=== PATIENT | male | born 1940 | race Caucasian/White ===

== ENCOUNTER → 2017-04-23 | Outpatient (CLI) | payer MEDICARE ==
[~2017-04-23] MED LIST: ALLO300 PO; ALLO300T2 PO; AMOX875T2 PO; COZA50TA PO; LEVO88TA2 PO; OMEP40CA2 PO; PRED10 PO; PRIL20CA PO; TIMO0.255 EACH EYE; TIMO0.255 OU; VALT500T PO
== END ==
LOC: CLAB 09:34
PROVIDERS: ATTEND Specialist
DX: R79.89 Other specified abnormal findings of blood chemistry (principal); B18.2 Chronic viral hepatitis C; Z79.899 Other long term (current) drug therapy
CPT/HCPCS: 36415; 82140

== ENCOUNTER 2017-05-17 08:36 | Inpatient (IN) | payer MEDICARE ==
[2017-05-17] VITALS (19 sets, daily range): BP systolic 133–201; BP diastolic 67–106; PULSE 52–84; RESP 18–22; TEMP 98; O2SAT 95–100
[~2017-05-17] VITALS: Ht 188 cm; Wt 103.8 kg
[~2017-05-17 08:36] MED LIST changes: -ALLO300T2 PO; -AMOX875T2 PO; -COZA50TA PO; -OMEP40CA2 PO; -PRED10 PO; -TIMO0.255 EACH EYE
[2017-05-17] MEDS ORDERED: SODIUM CHLOR 0.9% 1000 ML INJ 1,000 ML IV SCH (09:03)
--- NOTE | 2017-05-17 09:11 | PD ---
HPI Chief Complaint: ENT Complaint Time Seen by Provider: 08:57 Travel History International Travel<30 days: No Contact w/Intl Traveler<30days: No Traveled to known affect area: No History of Present Illness HPI Patient is a 76-year-old male with history of head and neck cancer which he currently is in remission for the past 7.5 years, presents to emergency room with complaints of "funny feeling in his throat and neck." Patient reports that last night, he had a sore throat, reports that he woke up this morning with increased swelling to the left side of his neck. Patient reports that he found it difficult to swallow pills, patient is concerned that he may have recurrent head and neck cancer. Patient reports that his oncologist Dr. Day, his radiation oncologist is Dr. Arroyo and his ENT doctor is Dr. Ibrahim. Patient reports that there was no surgical intervention for his head and neck cancer, he did receive 35 doses of radiation treatments and reports that he has been in remission for the past 7.5 years. Patient denies any problems breathing , reports that he thinks that he is having an allergic reaction this time. Patient reports that he is able to swallow fluids, reports that he is not able to swallow his pills. PFSH Past Medical History Blood Disorders: No Cancer: Yes (HEAD AND NECK TREATED RADIATION and chemo) Cardiovascular Problems: No Chemotherapy: Yes Diabetes: No Endocrine: No Gastrointestinal Disorders: Yes Glaucoma: Yes Genitourinary: No Hepatitis: Yes (C resolved with tx) Hiatal Hernia: No Hypertension: No (RESOLVED) Immune Disorder: No Medical other: Yes (barrets esophagus) Musculoskeletal: No Neurologic: No Psychiatric: No Reproductive: No Respiratory: No Radiation Therapy: Yes Thyroid Disease: Yes Influenza Vaccination: No Past Surgical History Abdominal Surgery: Yes (LIVER BIOPSY X 4) AICD: No Cholecystectomy: Yes Ear Surgery: No Eye Surgery: Yes (CATARACT BILAT.) Genitourinary Surgery: Yes (ORCHIOPEXY) Joint Replacement: No Oral Surgery: No Pacemaker: No Tonsillectomy: Yes Other Surgery: No (COLONOSCOPY) Social History Alcohol Use: Yes (beer daily) Tobacco Use: No Substance Use: No Allergies-Medications (Allergen,Severity, Reaction): Coded Allergies: No Known Allergies (Verified , 05/17/17) Reported Meds & Prescriptions Reported Meds & Active Scripts Active Reported Timoptic Opth Drops (Timolol Opth Drops) 0.25 % Soln 1 Drop EACH EYE DAILY Omeprazole 40 Mg Cap 40 Mg PO BID Levothyroxine (Levothyroxine Sodium) 88 Mcg Tab 88 Mcg PO DAILY Allopurinol 300 Mg Tab 300 Mg PO DAILY Review of Systems General / Constitutional: No: Fever Eyes: No: Visual changes HENT: Positive: Sore Throat, Neck Pain, No: Headaches Cardiovascular: No: Chest Pain or Discomfort Respiratory: No: Shortness of Breath Gastrointestinal: No: Abdominal Pain Genitourinary: No: Dysuria Musculoskeletal: No: Pain Skin: No Rash Neurologic: No: Weakness Psychiatric: No: Depression Endocrine: No: Polydipsia Hematologic/Lymphatic: No: Easy Bruising Physical Exam Narrative GENERAL: Mild distress SKIN: Focused skin assessment warm/dry. HEAD: Atraumatic. Normocephalic. EYES: Pupils equal and round. No scleral icterus. No injection or drainage. ENT: No nasal bleeding or discharge. Mucous membranes pink and moist. Patient with no midline swelling, pharyx open and patent with no posterior swelling, patient with no drooling on exam, patient with no airway compromise NECK: Trachea midline. No JVD. Patient with left-sided cervical adenopathy with tenderness CARDIOVASCULAR: Regular rate and rhythm. No murmur appreciated. RESPIRATORY: No accessory muscle use. Clear to auscultation. Breath sounds equal bilaterally. GASTROINTESTINAL: Abdomen soft, non-tender, nondistended. Hepatic and splenic margins not palpable. MUSCULOSKELETAL: No obvious deformities. No clubbing. No cyanosis. No edema. NEUROLOGICAL: Awake and alert. No obvious cranial nerve deficits. Motor grossly within normal limits. Normal speech. PSYCHIATRIC: Appropriate mood and affect; insight and judgment normal. Data Data Last Documented VS Vital Signs Date Time Temp Pulse Resp B/P (MAP) Pulse Ox O2 Delivery O2 Flow Rate FiO2 05/17/17 12:02 65 20 189/106 (133) 97 Room Air 05/17/17 08:38 98.0 Orders Orders Complete Blood Count With Diff (05/17/17 09:03) Comprehensive Metabolic Panel (05/17/17 09:03) Prothrombin Time / Inr (Pt) (05/17/17 09:03) Act Partial Throm Time (Ptt) (05/17/17 09:03) Iv Access Insert/Monitor (05/17/17 09:03) Ecg Monitoring (05/17/17 09:03) Oximetry (05/17/17 09:03) NPO (05/17/17 09:03) Sodium Chlor 0.9% 1000 Ml Inj (Ns 1000 M (05/17/17 09:03) Sodium Chloride 0.9% Flush (Ns Flush) (05/17/17 09:15) Ct Soft Tiss Neck W Iv Cont (05/17/17 ) Group A Rapid Strep Screen (05/17/17 09:06) Dexamethasone Inj (Decadron Inj) (05/17/17 09:15) Strep Culture (Group A) (05/17/17 09:40) Iohexol 350 Inj (Omnipaque 350 Inj) (05/17/17 11:52) Labs Laboratory Tests Test 05/17/17 09:36 White Blood Count 6.3 TH/MM3 Red Blood Count 4.26 MIL/MM3 Hemoglobin 14.3 GM/DL Hematocrit 42.0 % Mean Corpuscular Volume 98.5 FL Mean Corpuscular Hemoglobin 33.7 PG Mean Corpuscular Hemoglobin Concent 34.2 % Red Cell Distribution Width 13.4 % Platelet Count 96 TH/MM3 Mean Platelet Volume 8.4 FL Neutrophils (%) (Auto) 68.5 % Lymphocytes (%) (Auto) 21.8 % Monocytes (%) (Auto) 7.1 % Eosinophils (%) (Auto) 2.2 % Basophils (%) (Auto) 0.4 % Neutrophils # (Auto) 4.3 TH/MM3 Lymphocytes # (Auto) 1.4 TH/MM3 Monocytes # (Auto) 0.4 TH/MM3 Eosinophils # (Auto) 0.1 TH/MM3 Basophils # (Auto) 0.0 TH/MM3 CBC Comment AUTO DIFF Differential Comment AUTO DIFF CONFIRMED Platelet Estimate LOW Platelet Morphology Comment NORMAL Prothrombin Time 10.6 SEC Prothromb Time International Ratio 1.0 RATIO Activated Partial Thromboplast Time 23.3 SEC Blood Urea Nitrogen 8 MG/DL Creatinine 0.80 MG/DL Random Glucose 110 MG/DL Total Protein 7.1 GM/DL Albumin 3.6 GM/DL Calcium Level 8.8 MG/DL Alkaline Phosphatase 49 U/L Aspartate Amino Transf (AST/SGOT) 17 U/L Alanine Aminotransferase (ALT/SGPT) 19 U/L Total Bilirubin 1.2 MG/DL Sodium Level 139 MEQ/L Potassium Level 3.9 MEQ/L Chloride Level 105 MEQ/L Carbon Dioxide Level 25.9 MEQ/L Anion Gap 8 MEQ/L Estimat Glomerular Filtration Rate 94 ML/MIN MDM Medical Decision Making Medical Screen Exam Complete: Yes Emergency Medical Condition: Yes Interpretation(s) Vital Signs Date Time Temp Pulse Resp B/P (MAP) Pulse Ox O2 Delivery O2 Flow Rate FiO2 05/17/17 08:38 98.0 66 20 201/94 (129) 98 Room Air Differential Diagnosis Differential includes allergic reaction, recurrent head and neck cancer, pharyngitis, abscess Narrative Course 76-year-old male with history of head and neck cancer currently in remission for the past 7.5 years, the emergency room complaints of sore throat, swelling to the left that his neck as well as difficulty with swallowing pills which started yesterday night. Patient was placed on a monitor technician upon arrival to the emergency room. Lab work including CT of the soft tissue of the neck ordered. Plan to give IV fluids, dexamethasone to help with the swelling. We'll monitor on a monitor technician. Vital Signs Date Time Temp Pulse Resp B/P (MAP) Pulse Ox O2 Delivery O2 Flow Rate FiO2 05/17/17 09:39 54 178/79 (112) 05/17/17 09:25 96 Room Air 05/17/17 09:24 55 22 194/90 (124) 97 Room Air 05/17/17 08:38 98.0 66 20 201/94 (129) 98 Room Air rapid strep neg Laboratory Tests Test 05/17/17 09:36 White Blood Count 6.3 TH/MM3 (4.0-11.0) Red Blood Count 4.26 MIL/MM3 (4.50-5.90) Hemoglobin 14.3 GM/DL (13.0-17.0) Hematocrit 42.0 % (39.0-51.0) Mean Corpuscular Volume 98.5 FL (80.0-100.0) Mean Corpuscular Hemoglobin 33.7 PG (27.0-34.0) Mean Corpuscular Hemoglobin Concent 34.2 % (32.0-36.0) Red Cell Distribution Width 13.4 % (11.6-17.2) Platelet Count 96 TH/MM3 (150-450) Mean Platelet Volume 8.4 FL (7.0-11.0) Neutrophils (%) (Auto) 68.5 % (16.0-70.0) Lymphocytes (%) (Auto) 21.8 % (9.0-44.0) Monocytes (%) (Auto) 7.1 % (0.0-8.0) Eosinophils (%) (Auto) 2.2 % (0.0-4.0) Basophils (%) (Auto) 0.4 % (0.0-2.0) Neutrophils # (Auto) 4.3 TH/MM3 (1.8-7.7) Lymphocytes # (Auto) 1.4 TH/MM3 (1.0-4.8) Monocytes # (Auto) 0.4 TH/MM3 (0-0.9) Eosinophils # (Auto) 0.1 TH/MM3 (0-0.4) Basophils # (Auto) 0.0 TH/MM3 (0-0.2) CBC Comment AUTO DIFF Differential Comment AUTO DIFF CONFIRMED Platelet Estimate LOW (NORMAL) Platelet Morphology Comment NORMAL (NORMAL) Prothrombin Time 10.6 SEC (9.8-11.6) Prothromb Time International Ratio 1.0 RATIO Activated Partial Thromboplast Time 23.3 SEC (24.3-30.1) Blood Urea Nitrogen 8 MG/DL (7-18) Creatinine 0.80 MG/DL (0.60-1.30) Random Glucose 110 MG/DL (74-106) Total Protein 7.1 GM/DL (6.4-8.2) Albumin 3.6 GM/DL (3.4-5.0) Calcium Level 8.8 MG/DL (8.5-10.1) Alkaline Phosphatase 49 U/L (45-117) Aspartate Amino Transf (AST/SGOT) 17 U/L (15-37) Alanine Aminotransferase (ALT/SGPT) 19 U/L (12-78) Total Bilirubin 1.2 MG/DL (0.2-1.0) Sodium Level 139 MEQ/L (136-145) Potassium Level 3.9 MEQ/L (3.5-5.1) Chloride Level 105 MEQ/L (98-107) Carbon Dioxide Level 25.9 MEQ/L (21.0-32.0) Anion Gap 8 MEQ/L (5-15) Estimat Glomerular Filtration Rate 94 ML/MIN (>89) Last Impressions Neck CT 05/17/17 0000 Signed Impressions: Service Date/Time: Wednesday, May 17, 2017 11:39 - CONCLUSION: Abnormal asymmetric soft tissue involving the left mucosal surface of the oropharynx and hypopharynx extending inferiorly to the piriform recess. There is also thickening/edema of the epiglottis. Findings are suspicious for a malignant process. Suggest direct visualization of this area for further assessment. Pasquale Garcia MD Patient with concerning findings of asymmetric soft tissue swelling along the left mucosal surface of the oropharynx and hypopharynx extending inferiorly to the piriform recess. There is also thickening and edema of the epiglottis. Findings are suspicious for malignant process. All findings reviewed with patient in detail, plan to admit to the ICU case reviewed with Dr. Olson who will see patient in consult case reviewed with Dr. Jones who accepts patient to service Critical Care Narrative Aggregate critical care time was 30 minutes. Time to perform other separately billable procedures was not included in the critical care time. My time did not include minutes spent treating any other patients simultaneously or on activities that did not directly contribute to the patient's treatment. The services I provided to this patient were to treat and/or prevent clinically significant deterioration that could result in: , decompensation, deterioration I provided critical care services requiring my management, as noted below: Chart data review, documentation time, medication orders and management, vital sign assessments/reviewing monitor data, ordering and reviewing lab tests, ordering and interpreting/reviewing x-rays and diagnostic studies, care of the patient and discussion of the patient with the admitting physicians. Diagnosis Primary Impression: Epiglottitis Admitting Information Admitting Physician Requests: Shelly Burton DO May 17, 2017 09:11
[2017-05-17] MEDS ORDERED: SODIUM CHLORIDE 0.9% FLUSH 10 ML FLUSH IV FLUSH PRN ×2 (09:15→14:30)
[2017-05-17] MEDS ORDERED: DEXAMETHASONE SOD PHOS 20 MG/5 ML VIAL IV PUSH ONE (09:15)
[2017-05-17] MEDS ORDERED: ALLO300T2 PO (09:28)
[2017-05-17] MEDS ORDERED: TIMO0.255 EACH EYE (09:28)
[2017-05-17] MEDS ORDERED: LEVO88TA2 PO (09:28)
[2017-05-17] MEDS ORDERED: OMEP40CA2 PO (09:28)
[2017-05-17 10:07] LABS: AUTOMATED NEUTROPHIL # 4.3 TH/MM3 (1.8-7.7); BASOPHIL % 0.4 % (0.0-2.0); EOSINOPHIL # 0.1 TH/MM3 (0-0.4); EOSINOPHIL % 2.2 % (0.0-4.0); LYMPH % 21.8 % (9.0-44.0); LYMPHOCYTE # 1.4 TH/MM3 (1.0-4.8); MEAN CELL VOLUME 98.5 FL (80.0-100.0); MEAN CORPUSCULAR HEMOGLOBIN 33.7 PG (27.0-34.0); MEAN CORPUSCULAR HGB CONC 34.2 % (32.0-36.0); MONO % 7.1 % (0.0-8.0); NEUT % 68.5 % (16.0-70.0); PLATELET COUNT 96 TH/MM3 (150-450); RED BLOOD COUNT 4.26 MIL/MM3 (4.50-5.90); RED CELL DISTRIBUTION WIDTH 13.4 % (11.6-17.2); WHITE BLOOD COUNT 6.3 TH/MM3 (4.0-11.0)
[2017-05-17 10:14] LABS: HEMO FLAGS AUTO DIFF
[2017-05-17 10:17] LABS: PROTHROMBIN TIME - PATIENT 10.6 SEC (9.8-11.6)
[2017-05-17 10:21] LABS: APTT (PATIENT) 23.3 SEC (24.3-30.1)
[2017-05-17 10:28] LABS: ALT (GPT) 19 U/L (12-78); ANION GAP 8 MEQ/L (5-15); AST (GOT) 17 U/L (15-37); BICARBONATE 25.9 MEQ/L (21.0-32.0); CHLORIDE 105 MEQ/L (98-107); GLOMERULAR FILTRATION RATE 94 ML/MIN (>89); POTASSIUM 3.9 MEQ/L (3.5-5.1); SODIUM (NA) 139 MEQ/L (136-145)
[2017-05-17 10:35] LABS: ALKALINE PHOSPHATASE 49 U/L (45-117); BLOOD UREA NITROGEN 8 MG/DL (7-18); TOTAL BILIRUBIN ADULT 1.2 MG/DL (0.2-1.0)
[2017-05-17 10:56] LABS: PLATELET ESTIMATE SMEAR LOW (NORMAL); PLATELET MORPHOLOGY NORMAL (NORMAL); SCAN/DIFF AUTO DIFF CONFIRMED
[2017-05-17] MEDS ORDERED: IOHEXOL 350 MG/ML 10 ML VIAL (for RAD DIAG) IV PUSH ONE (11:52)
--- NOTE | 2017-05-17 12:05 | RADRPT ---
EXAM DATE/TIME: 05/17/2017 11:39 [facility] COMPARISON: CT CERVICAL SPINE W/O CONTRAST W 3D RECON, February 22, 2012, 19:14. INDICATIONS : Dysphagia. IV CONTRAST: 100 cc Omnipaque 350 (iohexol) IV RADIATION DOSE: 9.54 CTDIvol (mGy) MEDICAL HISTORY : Hypertension. head and neck cancer SURGICAL HISTORY : Tonsillectomy. ENCOUNTER: Initial ACUITY: 1 day PAIN SCALE: 6/10 LOCATION: neck TECHNIQUE: Volumetric scanning of the neck was performed. Using automated exposure control and adjustment of th e mA and/or kV according to patient size, radiation dose was kept as low as reasonably achievable to obtain optimal diagnostic quality images. DICOM format image data is available electronically for r eview and comparison. FINDINGS: There is abnormal asymmetric soft tissue fullness along the left mucosal surface involving the oropha rynx and hypopharynx extending inferiorly to the piriform recess. Epiglottis is mildly deviated to th e right and demonstrates thickening and edema. No regional lymphadenopathy is identified. There is trejo bcutaneous edema along the left neck. Thyroid gland is within normal limits. There is moderate severi ty atherosclerotic disease in the carotid bulbs bilaterally. Visualized upper lung zones are clear. T here are degenerative changes of the cervical spine. CONCLUSION: Abnormal asymmetric soft tissue involving the left mucosal surface of the oropharynx and hypopharynx extending inferiorly to the piriform recess. There is also thickening/edema of the epiglottis. Findin gs are suspicious for a malignant process. Suggest direct visualization of this area for further asse ssment. Pasquale Garcia MD on May 17, 2017 at 11:59 Board Certified Radiologist. This report was verified electronically.
[2017-05-17] MEDS ORDERED: PIPERACIL-TAZO 3.375 GM PREMIX 50 ML IV ONE (13:00)
[2017-05-17] MEDS ORDERED: hydrALAZINE HCL 20 MG/ML VIAL IV PUSH ONE (13:15)
[2017-05-17] MEDS ORDERED: MISCELLANEOUS NURSING INFORMATION XX SCH (14:30)
[2017-05-17] MEDS ORDERED: SENNOSIDES 8.6 MG TAB PO PRN (14:30)
[2017-05-17] MEDS ORDERED: CHLORHEXIDINE GLUCONATE 2 % 1 PACK (2 CLOTHS) TOP PRN (14:30)
[2017-05-17] MEDS ORDERED: BISACODYL 10 MG SUPP RECTAL PRN (14:30)
[2017-05-17] MEDS ORDERED: MAGNESIUM HYDROXIDE SUSP 30 ML CUP PO PRN (14:30)
[2017-05-17] MEDS ORDERED: RESP: ALBUTEROL 2.5 MG/IPRATROPIUM 0.5 MG NEB (PRN) INH (14:30)
[2017-05-17] MEDS ORDERED: LACTULOSE SYRUP 20 GM/30 ML CUP PO PRN (14:30)
[2017-05-17] MEDS: SODIUM CHLOR 0.9% 1000 ML INJ 1,000 ML IV SCH (14:54)
--- NOTE | 2017-05-17 15:43 | HHI.HP ---
HPI Service Critical Care Medicine Primary Care Physician Unknown Admission Diagnosis Epiglottitis Diagnosis: Travel History International Travel<30 Days: No Contact w/Intl Traveler <30 Da: No Traveled to Known Affected Are: No History of Present Illness The patient is a 76-year-old male with H/O head and neck cancer which he currently is in remission for the past 7.5 years. The patient presented to ED with complaints of "funny feeling in his throat and neck." Patient reports that last night, he had a sore throat, reports that he woke up this morning with increased swelling to the left side of his neck. Patient reports that he found it difficult to swallow pills, and is concerned that he may have recurrent head and neck cancer. Patient reports that his oncologist Dr. Day, his radiation oncologist is Dr. Arroyo and his ENT doctor is Dr. Ibrahim. Patient reports that there was no surgical intervention for his head and neck cancer, he did receive 35 doses of radiation treatments and reports that he has been in remission for the past 7.5 years. Patient denies any problems breathing , reports that he thinks that he is having an allergic reaction this time. Patient reports that he is able to swallow fluids, reports that he is not able to swallow his pills. Critical care medicine was consulted for management. ENT was consulted, Dr. Olson and upon my arrival to the ED, the patient was examined with fiberoptic and evaluation revealed a patent airway, functional mobility of vocal cords, with slight scarring, notably edematous epiglottis, no narrowing below the vocal cords. Room air O2 saturation was noted to be 95-96% , no dyspnea noted. History PFSH Past Medical History Blood Disorders: No Cancer: Yes (HEAD AND NECK TREATED RADIATION and chemo) Cardiovascular Problems: No Chemotherapy: Yes Diabetes: No Endocrine: No Gastrointestinal Disorders: Yes Glaucoma: Yes Genitourinary: No Hepatitis: Yes (C resolved with tx) Hiatal Hernia: No Hypertension: No (RESOLVED) Immune Disorder: No Medical other: Yes (barrets esophagus) Musculoskeletal: No Neurologic: No Psychiatric: No Reproductive: No Respiratory: No Radiation Therapy: Yes Thyroid Disease: Yes Influenza Vaccination: No Past Surgical History Abdominal Surgery: Yes (LIVER BIOPSY X 4) AICD: No Cholecystectomy: Yes Ear Surgery: No Eye Surgery: Yes (CATARACT BILAT.) Genitourinary Surgery: Yes (ORCHIOPEXY) Joint Replacement: No Oral Surgery: No Pacemaker: No Tonsillectomy: Yes Other Surgery: No (COLONOSCOPY) Social History Alcohol Use: Yes (beer daily) Tobacco Use: No Substance Use: No Allergies-Medications Allergies-Medications (Allergen,Severity, Reaction): Coded Allergies: No Known Allergies (Verified , 05/17/17) Reported Meds & Prescriptions Reported Meds & Active Scripts Active Reported Timoptic Opth Drops (Timolol Opth Drops) 0.25 % Soln 1 Drop EACH EYE DAILY Omeprazole 40 Mg Cap 40 Mg PO BID Levothyroxine (Levothyroxine Sodium) 88 Mcg Tab 88 Mcg PO DAILY Allopurinol 300 Mg Tab 300 Mg PO DAILY ROS Review of Systems General / Constitutional: No: Fever Eyes: No: Visual changes HENT: Positive: Sore Throat, Neck Pain, No: Headaches Cardiovascular: No: Chest Pain or Discomfort Respiratory: No: Shortness of Breath Gastrointestinal: No: Abdominal Pain Genitourinary: No: Dysuria Musculoskeletal: No: Pain Skin: No Rash Neurologic: No: Weakness Psychiatric: No: Depression Endocrine: No: Polydipsia Hematologic/Lymphatic: No: Easy Bruising Past Family Social History Allergies: Coded Allergies: No Known Allergies (Verified , 05/17/17) Physical Exam Vital Signs Vital Signs Date Time Temp Pulse Resp B/P (MAP) Pulse Ox O2 Delivery O2 Flow Rate FiO2 05/17/17 14:51 97 21 05/17/17 14:32 Nasal Cannula 3.00 05/17/17 14:19 72 22 159/76 (103) 97 Room Air 05/17/17 13:45 72 18 151/73 (99) 96 Room Air 05/17/17 13:35 72 18 133/67 (89) 96 Room Air 05/17/17 13:25 74 20 143/73 (96) 96 Room Air 05/17/17 13:15 68 22 163/79 (107) 95 Room Air 05/17/17 13:00 70 22 200/93 (128) 95 Room Air 05/17/17 12:02 65 20 189/106 (133) 97 Room Air 05/17/17 11:00 56 22 193/84 (120) 98 Room Air 05/17/17 10:00 52 20 179/76 (110) 98 Room Air 05/17/17 09:39 54 178/79 (112) 05/17/17 09:25 96 Room Air 05/17/17 09:24 55 22 194/90 (124) 97 Room Air 05/17/17 08:38 98.0 66 20 201/94 (129) 98 Room Air Physical Exam GENERAL: Well-nourished well-developed male of appropriate stated age, in mild distress with complaints of pharyngitis SKIN: Warm and dry. HEAD: Atraumatic. Normocephalic. EYES: Pupils equal and round. No scleral icterus. No injection or drainage. ENT: No nasal bleeding or discharge. Mucous membranes pink and moist. Slight elevation left side of floor of mouth noted, with multiple caries/poor dentition NECK: Trachea midline. No JVD. Noted edematous submental and submandibular area left CARDIOVASCULAR: Normal rate, regular rhythm. RESPIRATORY: No accessory muscle use. Clear to auscultation. Breath sounds equal bilaterally. GASTROINTESTINAL: Abdomen soft, non-tender, nondistended. No guarding. MUSCULOSKELETAL: Extremities without clubbing, cyanosis, or edema. No obvious deformities. NEUROLOGICAL: Awake and alert. RASS 0. No gross focal/sensory deficits. Follows commands in all 4 extremities. Laboratory Laboratory Tests Test 05/17/17 09:36 White Blood Count 6.3 Red Blood Count 4.26 Hemoglobin 14.3 Hematocrit 42.0 Mean Corpuscular Volume 98.5 Mean Corpuscular Hemoglobin 33.7 Mean Corpuscular Hemoglobin Concent 34.2 Red Cell Distribution Width 13.4 Platelet Count 96 Mean Platelet Volume 8.4 Neutrophils (%) (Auto) 68.5 Lymphocytes (%) (Auto) 21.8 Monocytes (%) (Auto) 7.1 Eosinophils (%) (Auto) 2.2 Basophils (%) (Auto) 0.4 Neutrophils # (Auto) 4.3 Lymphocytes # (Auto) 1.4 Monocytes # (Auto) 0.4 Eosinophils # (Auto) 0.1 Basophils # (Auto) 0.0 CBC Comment AUTO DIFF Differential Comment AUTO DIFF CONFIRMED Platelet Estimate LOW Platelet Morphology Comment NORMAL Prothrombin Time 10.6 Prothromb Time International Ratio 1.0 Activated Partial Thromboplast Time 23.3 Blood Urea Nitrogen 8 Creatinine 0.80 Random Glucose 110 Total Protein 7.1 Albumin 3.6 Calcium Level 8.8 Alkaline Phosphatase 49 Aspartate Amino Transf (AST/SGOT) 17 Alanine Aminotransferase (ALT/SGPT) 19 Total Bilirubin 1.2 Sodium Level 139 Potassium Level 3.9 Chloride Level 105 Carbon Dioxide Level 25.9 Anion Gap 8 Estimat Glomerular Filtration Rate 94 Date/Time Source Procedure Growth Status 05/17/17 09:40 Throat Group A Streptococcus Screen Pending Received Result Diagram: 05/17/17 0936 05/17/17 0936 Imaging Last Impressions Neck CT 05/17/17 0000 Signed Impressions: Service Date/Time: Wednesday, May 17, 2017 11:39 - CONCLUSION: Abnormal asymmetric soft tissue involving the left mucosal surface of the oropharynx and hypopharynx extending inferiorly to the piriform recess. There is also thickening/edema of the epiglottis. Findings are suspicious for a malignant process. Suggest direct visualization of this area for further assessment. Pasquale Garcia MD Septic Shock Reassessment Heart: Regular rate and rhythm Lungs: Clear Skin: Warm Peripheral Pulses: Bounding Right Radial Bounding Left Radial Caprini VTE Risk Assessment Caprini VTE Risk Assessment: Mod/High Risk (score >= 2) Caprini Risk Assessment Model Point Value = 1 Point Value = 2 Point Value = 3 Point Value = 5 Age 41-60 Minor surgery BMI > 25 kg/m2 Swollen legs Varicose veins or History of unexplained or recurrent spontaneous Oral contraceptives or hormone replacement Sepsis (< 1 month) Serious lung disease, including pneumonia (< 1 month) Abnormal pulmonary function Acute myocardial infarction Congestive heart failure (< 1 month) History of inflammatory bowel disease Medical patient at bed rest Age 61-74 Arthroscopic surgery Major open surgery (> 45 min) Laparoscopic surgery (> 45 min) Malignancy Confined to bed (> 72 hours) Immobilizing plaster cast Central venous access Age >= 75 History of VTE Family history of VTE Factor V Leiden Prothrombin [id number] Lupus anticoagulant Anticardiolipin antibodies Elevated serum homocysteine Heparin-induced thrombocytopenia Other congenital or acquired thrombophilia Stroke (< 1 month) Elective arthroplasty Hip, pelvis, or leg fracture Acute spinal cord injury (< 1 month) Prophylaxis Regimen Total Risk Factor Score Risk Level Prophylaxis Regimen 0-1 Low Early ambulation 2 Moderate Order ONE of the following: *Sequential Compression Device (SCD) *Heparin 5000 units SQ BID 3-4 Higher Order ONE of the following medications: *Heparin 5000 units SQ TID *Enoxaparin/Lovenox 40 mg SQ daily (WT < 150 kg, CrCl > 30 mL/min) *Enoxaparin/Lovenox 30 mg SQ daily (WT < 150 kg, CrCl > 10-29 mL/min) *Enoxaparin/Lovenox 30 mg SQ BID (WT < 150 kg, CrCl > 30 mL/min) AND/OR *Sequential Compression Device (SCD) 5 or more Highest Order ONE of the following medications: *Heparin 5000 units SQ TID (Preferred with Epidurals) *Enoxaparin/Lovenox 40 mg SQ daily (WT < 150 kg, CrCl > 30 mL/min) *Enoxaparin/Lovenox 30 mg SQ daily (WT < 150 kg, CrCl > 10-29 mL/min) *Enoxaparin/Lovenox 30 mg SQ BID (WT < 150 kg, CrCl > 30 mL/min) AND *Sequential Compression Device (SCD) Assessment and Plan Assessment and Plan This is a 76-year-old male with a history of carcinoma of the neck status post XRT, in remission for 7 years that has developed pharyngitis, and now presenting with progression of dysphagia over the last 24 hours. Differential diagnosis include Berhane's angina, initial signs of a submental infection or carcinoma recurrence. The patient currently has a patent airway but is at extremely high risk for emergent intubation/ cricothyrotomy and/or emergency tracheostomy due to possible acute respiratory compromise. The patient is critically ill. 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 Olson following Obtain Fiberoptic evaluation- epiglottitis, patent airway, no vocal cord edema, slight scarring, complete mobility abduction and adduction of vocal cords 05/17-CT neck-abnormal asymmetric soft tissue edema involving the left mucosal surface of the oropharynx and hypopharynx extending inferiorly to the form recess. Thickening and edema of the epiglottis. Suspicion for malignant process. Decadron 10 mg every 8 hours Zosyn 4.5GM every 6 hours Rocephin 1 g every 12 hours Vancomycin-consult pharmacy Racemic epi nebulizers every 3 hours Maintain nothing by mouth status Normal saline IV fluids Provide small size ETT's at bedside 4.5->5.5, and cricothyrotomy kit Maintain O2 at 2 L nasal cannula Closely monitor for signs of airway compromise-such as inability to control secretions, decreasing O2 sat, stridorous respirations and/or dyspnea Dispo: This patient remains critically ill with one or more organ systems which are or may become a threat to life. I have spent in excess of 49 minutes discontinuously in the care and management of this patient. This time is exclusive of procedures, and includes, but is not limited to, evaluation of the patient, review of the medical record, discussions with family, consultants, nursing staff, or respiratory therapy, and documentation in the medical record. Code Status Full Discussed Condition With Dr. Frances, Dr. Olson, and patient and SENIOR ACCOUNT DIRECTOR at bedside Lisa Price MD May 17, 2017 15:43
--- NOTE | 2017-05-17 15:58 | MB ---
cc: YANG OLSON MD DATE OF CONSULTATION: 05/17/2017. REASON FOR CONSULTATION: Left throat pain. HISTORY OF PRESENT ILLNESS: The patient is a pleasant 76-year-old with a history of head and neck cancer who had been in remission for 7-1/2 years who presented to the emergency room with a funny feeling in his throat and neck. He notes that this began last night and rapidly progressed over the morning. His ENT doctor is Dr. Johns. His radiation oncologist is Dr. Arroyo. His oncologist is Dr. Day. He has had no surgery; however, he has received radiation for his head and neck cancer. He is able to tolerate his secretions well. He documents that he has had no recent dental work and his airway is not acutely compromised. PHYSICAL EXAMINATION: On examination, his vital signs are stable. He has mild submental fullness and tenderness on the left as well as mild to moderate sublingual inflammation on the left. This is new as per the patient. His dentition is in poor repair but he has had no recent dental work. On flexible fiberoptic laryngoscopy, his airway is widely patent; however, he does have mild edema of his epiglottis and his left parapharyngeal area has mild inflammation as well. His vocal cords do note mild edema; however, they are patent bilaterally and there is an obvious airway between them. I was able to share this examination with Dr. Price, the internet marketing coordinator, as well. There is no malignant-appearing mucosa currently. Assessment is likely early Berhane's angina with acute inflammatory / infectious process in the left submental and parapharyngeal area. Discussed with him and the patient will likely need to be admitted for IV antibiotics and Decadron, likely 10 milligrams q. 8 hours of the Decadron assuming his sugar is under control. Also discussed with our team racemic epinephrine, which the internet marketing coordinator discussed, and I agreed upon. The patient will likely be NPO at this time as an airway precaution in case he needs any airway management in the future. However, as this is being caught early enough, it is very likely that with aggressive antibiotics, steroids and ancillary measures this may be able to be controlled conservatively. Discussed the above with the patient. Thank you for this consultation. Of note, although the patient will likely not need a tracheotomy for any definitive airway, it may be reasonable to give general surgery a courtesy communication noting that the patient is in-house with a currently stable airway, which may possibly decompensate in the next 48 to 72 hours, although not likely currently. Yang Olson MD CCP/HANNAH /2:48 PM /3:37 PM
[2017-05-17] MEDS ORDERED: Vancomycin Consult Pharmacy 1 EA OTHER SCH (16:00)
[2017-05-17] MEDS: cefTRIAXone INJ 1,000 MG in SODIUM CHLORIDE 0.9% INJ 100 ML IV SCH (16:52)
[2017-05-17] MEDS ORDERED: VANCOMYCIN INJ 1,250 MG in SODIUM CHLOR 0.9% 250 ML INJ 250 ML IV ONE (17:00)
[2017-05-17] MEDS: RESP: RACEPINEPHRINE 2.25% 0.5 ML NEB NEB SCH ×5 (17:10→21:36)
[2017-05-17] MEDS: DOCUSATE SODIUM 50 MG/SENNA 8.6 MG TAB PO SCH (20:59)
[2017-05-17] MEDS: SODIUM CHLORIDE 0.9% FLUSH 10 ML FLUSH IV FLUSH SCH (21:06)
[2017-05-17] MEDS: PIPERACIL-TAZO 4.5 GM PREMIX 100 ML IV SCH (21:06)
[2017-05-17] MEDS: DEXAMETHASONE SOD PHOS 4 MG/ML VIAL IV PUSH SCH (21:06)
[2017-05-18] VITALS (14 sets, daily range): PULSE 44–80; O2SAT 94–98
[2017-05-18] MEDS: PIPERACIL-TAZO 4.5 GM PREMIX 100 ML IV SCH ×4 (01:08→19:54)
[2017-05-18] MEDS: RESP: RACEPINEPHRINE 2.25% 0.5 ML NEB NEB SCH ×11 (01:50→23:57)
[2017-05-18] MEDS: cefTRIAXone INJ 1,000 MG in SODIUM CHLORIDE 0.9% INJ 100 ML IV SCH ×2 (03:27→15:38)
[2017-05-18] MEDS: CHLORHEXIDINE GLUCONATE 2 % 1 PACK (2 CLOTHS) TOP SCH (04:00)
[2017-05-18] MEDS: VANCOMYCIN INJ 1,250 MG in SODIUM CHLOR 0.9% 250 ML INJ 250 ML IV SCH ×2 (04:21→16:13)
[2017-05-18 04:42] LABS: AUTOMATED NEUTROPHIL # 10.7 TH/MM3 (1.8-7.7); BASOPHIL % 0.1 % (0.0-2.0); HEMATOCRIT 42.4 % (39.0-51.0); LYMPH % 24.8 % (9.0-44.0); LYMPHOCYTE # 3.8 TH/MM3 (1.0-4.8); MEAN CELL VOLUME 97.5 FL (80.0-100.0); MEAN CORPUSCULAR HEMOGLOBIN 33.6 PG (27.0-34.0); MEAN CORPUSCULAR HGB CONC 34.4 % (32.0-36.0); MONO % 6.3 % (0.0-8.0); NEUT % 68.8 % (16.0-70.0); PLATELET COUNT 148 TH/MM3 (150-450); RED BLOOD COUNT 4.35 MIL/MM3 (4.50-5.90); RED CELL DISTRIBUTION WIDTH 12.8 % (11.6-17.2); WHITE BLOOD COUNT 15.5 TH/MM3 (4.0-11.0)
[2017-05-18 04:52] LABS: BICARBONATE 25.5 MEQ/L (21.0-32.0); POTASSIUM 3.5 MEQ/L (3.5-5.1)
[2017-05-18 05:04] LABS: HEMO FLAGS AUTO DIFF
[2017-05-18 06:18] LABS: BANDS 10 % (0-6); NEUTROPHIL # MANUAL DIFF 11.6 TH/MM3 (1.8-7.7); POLYS (SEG NEUTROPHILS) 65 % (16-70); WBC DIFF SAMPLE 100
[2017-05-18 06:22] LABS: OVALOCYTES 1+ (NORMAL); PLATELET MORPHOLOGY NORMAL (NORMAL)
[2017-05-18 06:25] LABS: PLATELET ESTIMATE SMEAR LOW (NORMAL); SCAN/DIFF FINAL DIFF MANUAL
[2017-05-18] MEDS: LEVOTHYROXINE SODIUM 100 MCG VIAL IV PUSH SCH (06:36)
[2017-05-18] MEDS: DEXAMETHASONE SOD PHOS 4 MG/ML VIAL IV PUSH SCH ×3 (06:37→22:26)
[2017-05-18] MEDS: SODIUM CHLORIDE 0.9% FLUSH 10 ML FLUSH IV FLUSH SCH ×2 (09:00→19:54)
[2017-05-18] MEDS: DOCUSATE SODIUM 50 MG/SENNA 8.6 MG TAB PO SCH ×2 (09:00→21:00)
[2017-05-18] MEDS: PANTOPRAZOLE SODIUM 40 MG VIAL IV PUSH SCH (09:50)
[2017-05-18] MEDS: SODIUM CHLOR 0.9% 1000 ML INJ 1,000 ML IV SCH (10:43)
--- NOTE | 2017-05-18 11:10 | HHI.CCPN ---
Subjective Remarks/Hospital Course The patient is a 76-year-old male with H/O head and neck cancer which he currently is in remission for the past 7.5 years. The patient presented to ED with complaints of "funny feeling in his throat and neck." Patient reports that last night, he had a sore throat, reports that he woke up this morning with increased swelling to the left side of his neck. Patient reports that he found it difficult to swallow pills, and is concerned that he may have recurrent head and neck cancer. Patient reports that his oncologist Dr. Day, his radiation oncologist is Dr. Arroyo and his ENT doctor is Dr. Ibrahim. Patient reports that there was no surgical intervention for his head and neck cancer, he did receive 35 doses of radiation treatments and reports that he has been in remission for the past 7.5 years. Patient denies any problems breathing , reports that he thinks that he is having an allergic reaction this time. Patient reports that he is able to swallow fluids, reports that he is not able to swallow his pills. Critical care medicine was consulted for management. ENT was consulted, Dr. Olson and upon my arrival to the ED, the patient was examined with fiberoptic and evaluation revealed a patent airway, functional mobility of vocal cords, with slight scarring, notably edematous epiglottis, no narrowing below the vocal cords. Room air O2 saturation was noted to be 95-96% , no dyspnea noted. Subjective: 05/18: No acute events overnight. The patient was maintained on O2 via nasal cannula for the most of the evening with removal early this a.m. maintaining O2 sat 95-97%. No respiratory distress. Patient continues on multiple antibiotics , steroids and racemic epinephrine. Noted reddened area less than today, submandibular soft tissue edema slightly decreased. Objective Vital Signs Date Time Temp Pulse Resp B/P (MAP) Pulse Ox O2 Delivery O2 Flow Rate FiO2 05/18/17 10:00 72 05/18/17 07:56 98 21 05/17/17 17:10 Nasal Cannula 2.00 05/17/17 15:50 05/17/17 14:19 22 05/17/17 08:38 98.0 Intake and Output 05/18/17 05/18/17 05/19/17 08:00 16:00 00:00 Intake Total 200 ml 950 ml Output Total 900 ml Balance -700 ml 950 ml Result Diagram: 05/18/17 0412 05/18/17 0412 Other Results Microbiology Date/Time Source Procedure Growth Status 05/17/17 09:40 Throat Group A Streptococcus Screen (AVE) - Final Complete Imaging Last Impressions Neck CT 05/17/17 0000 Signed Impressions: Service Date/Time: Friday, May 17, 2017 11:39 - CONCLUSION: Abnormal asymmetric soft tissue involving the left mucosal surface of the oropharynx and hypopharynx extending inferiorly to the piriform recess. There is also thickening/edema of the epiglottis. Findings are suspicious for a malignant process. Suggest direct visualization of this area for further assessment. Pasquale Garcia MD Objective Remarks GENERAL: Well-nourished well-developed male of appropriate stated age, in mild distress with complaints of pharyngitis SKIN: Warm and dry. HEAD: Atraumatic. Normocephalic. EYES: Pupils equal and round. No scleral icterus. No injection or drainage. ENT: No nasal bleeding or discharge. Mucous membranes pink and moist. Slight elevation left side of floor of mouth noted, with multiple caries/poor dentition NECK: Trachea midline. No JVD. Noted edematous submental and submandibular area left CARDIOVASCULAR: Normal rate, regular rhythm. RESPIRATORY: No accessory muscle use. Clear to auscultation. Breath sounds equal bilaterally. GASTROINTESTINAL: Abdomen soft, non-tender, nondistended. No guarding. MUSCULOSKELETAL: Extremities without clubbing, cyanosis, or edema. No obvious deformities. NEUROLOGICAL: Awake and alert. RASS 0. No gross focal/sensory deficits. Follows commands in all 4 extremities. A/P Assessment and Plan This is a 76-year-old male with a history of carcinoma of the neck status post XRT, in remission for 7 years that has developed pharyngitis, and now presenting with progression of dysphagia over the last 24 hours. Differential diagnosis include Berhane's angina, initial signs of a submental infection or carcinoma recurrence. The patient currently has a patent airway but is at extremely high risk for emergent intubation/ cricothyrotomy and/or emergency tracheostomy due to possible acute respiratory compromise. The patient is critically ill. ASSESSMENT Submental submandibular abscess Berhane's angina Epiglottitis Possible carcinoma recurrence S/P XRT 35 treatments,in remission x 7 years PLAN ENT consulted- Dr. Olson following 05/17 Obtained Fiberoptic evaluation in ED - epiglottitis, patent airway, no vocal cord edema, slight scarring, complete mobility abduction and adduction of vocal cords 05/17-CT neck-abnormal asymmetric soft tissue edema involving the left mucosal surface of the oropharynx and hypopharynx extending inferiorly to the form recess. Thickening and edema of the epiglottis. Suspicion for malignant process . Decadron 10 mg every 8 hours Zosyn 4.5GM every 6 hours Rocephin 1 g every 12 hours Vancomycin-consult pharmacy Continue Racemic epi nebulizers every 3 hours Maintain nothing by mouth status Normal saline IV fluids Provide small size ETT's at bedside 4.5->5.5, and cricothyrotomy kit Maintain O2 saturation greater than 92% patient currently on room air Closely monitor for signs of airway compromise-such as inability to control secretions, decreasing O2 sat, stridorous respirations and/or dyspnea. Have all respiratory equipment maintained at bedside, to include small endotracheal tubes percutaneous trach set, [place], difficult airway equipment. General surgery consulted-Dr. Oliva Dispo: This patient remains critically ill with one or more organ systems which are or may become a threat to life. I have spent in excess of 30 minutes discontinuously in the care and management of this patient. This time is exclusive of procedures, and includes, but is not limited to, evaluation of the patient, review of the medical record, discussions with family, consultants, nursing staff, or respiratory therapy, and documentation in the medical record. Physician Lisa Pena MD May 18, 2017 11:10
--- NOTE | 2017-05-18 12:34 | HHI.PR ---
Subjective Subjective Notes Patient states that he has had no difficulty breathing. His voice, according to him, has returned to normal. He has no other significant complaints and feels much better than he did even yesterday. Objective Vitals/I&O Vital Signs Date Time Temp Pulse Resp B/P (MAP) Pulse Ox O2 Delivery O2 Flow Rate FiO2 05/18/17 12:00 65 05/18/17 07:56 98 21 05/17/17 17:10 Nasal Cannula 2.00 05/17/17 15:50 05/17/17 14:19 22 05/17/17 08:38 98.0 Labs Laboratory Tests Test 05/17/17 16:40 05/17/17 18:57 05/18/17 04:12 Nasal Screen MRSA (PCR) MRSA NOT DETECTED Procalcitonin LESS THAN 0.05 White Blood Count 15.5 Red Blood Count 4.35 Hemoglobin 14.6 Hematocrit 42.4 Mean Corpuscular Volume 97.5 Mean Corpuscular Hemoglobin 33.6 Mean Corpuscular Hemoglobin Concent 34.4 Red Cell Distribution Width 12.8 Platelet Count 148 Mean Platelet Volume 8.2 Neutrophils (%) (Auto) 68.8 Lymphocytes (%) (Auto) 24.8 Monocytes (%) (Auto) 6.3 Eosinophils (%) (Auto) 0.0 Basophils (%) (Auto) 0.1 Neutrophils # (Auto) 10.7 Lymphocytes # (Auto) 3.8 Monocytes # (Auto) 1.0 Eosinophils # (Auto) 0.0 Basophils # (Auto) 0.0 CBC Comment AUTO DIFF Differential Total Cells Counted 100 Neutrophils % (Manual) 65 Band Neutrophils % 10 Lymphocytes % 14 Monocytes % 11 Neutrophils # (Manual) 11.6 Differential Comment FINAL DIFF MANUAL Platelet Estimate LOW Platelet Morphology Comment NORMAL Ovalocytes 1+ Blood Urea Nitrogen 8 Creatinine 0.85 Random Glucose 134 Calcium Level 8.7 Phosphorus Level 2.8 Magnesium Level 2.0 Sodium Level 140 Potassium Level 3.5 Chloride Level 104 Carbon Dioxide Level 25.5 Anion Gap 11 Estimat Glomerular Filtration Rate 88 Date/Time Source Procedure Growth Status 05/17/17 09:40 Throat Group A Streptococcus Screen Pending Received Cardiovascular: Regular Lungs: Clear Abdomen: Non-distended, Non-tender, BS normal Extremities: No edema A/P Assessment and Plan Impression: 76-year-old patient well known to me with Berhane's angina. He is stable and actually improving. It is not a year that he will require tracheostomy. Plan: General surgery will follow as needed. Please call if he worsens. uLke Oliva MD May 18, 2017 12:34
[2017-05-18] MEDS ORDERED: ROCURONIUM INJ 50 MG/5 ML VIAL ONE (13:12)
[2017-05-18] MEDS ORDERED: VECURONIUM BROMIDE 10 MG VIAL ONE (13:16)
[2017-05-19] VITALS (17 sets, daily range): BP systolic 124–144; BP diastolic 64–82; PULSE 36–60; RESP 19–28; TEMP 97.6–98; O2SAT 94–99
[2017-05-19] MEDS: PIPERACIL-TAZO 4.5 GM PREMIX 100 ML IV SCH ×4 (01:11→20:27)
[2017-05-19] MEDS: RESP: RACEPINEPHRINE 2.25% 0.5 ML NEB NEB SCH ×6 (02:19→23:41)
[2017-05-19] MEDS: CHLORHEXIDINE GLUCONATE 2 % 1 PACK (2 CLOTHS) TOP SCH (04:00)
[2017-05-19] MEDS: cefTRIAXone INJ 1,000 MG in SODIUM CHLORIDE 0.9% INJ 100 ML IV SCH ×2 (04:00→16:20)
[2017-05-19] MEDS ORDERED: PHARMACY ORDERED LAB ONE (04:45)
--- NOTE | 2017-05-19 05:18 | MB ---
cc: BOLIVAR VARGHESE DR. DATE OF CONSULTATION 05/18/2017 PROGRESS NOTE Of note, the patient looks much improved this evening. He is not having any pain. He has much improvement of his lingual inflammation as well. His airway is very stable today. He is not having any respiratory distress whatsever. He is in very pleasant spirits ASSESSMENT A 76-year-old with history of carcinoma of the neck, status post XRT in remission for 7 years with a resolving of Berhane's angina with marked improvement overnight. RECOMMENDATIONS The patient is to continue his antibiotics and steroids. He will likely be transferred to the floor tomorrow. The patient should follow up with ENT in two to four. I am available for any further consultation. Thank you allowing me to share in his care. Yang Olson MD CCP/[facility] /8:58 PM /5:10 AM
[2017-05-19 05:52] LABS: AUTOMATED NEUTROPHIL # 6.8 TH/MM3 (1.8-7.7); HEMATOCRIT 38.2 % (39.0-51.0); HEMO FLAGS DIFF FINAL; LYMPH % 14.6 % (9.0-44.0); LYMPHOCYTE # 1.2 TH/MM3 (1.0-4.8); MEAN CELL VOLUME 97.7 FL (80.0-100.0); MEAN CORPUSCULAR HEMOGLOBIN 33.6 PG (27.0-34.0); MEAN CORPUSCULAR HGB CONC 34.4 % (32.0-36.0); MONO % 3.4 % (0.0-8.0); PLATELET COUNT 105 TH/MM3 (150-450); RED BLOOD COUNT 3.91 MIL/MM3 (4.50-5.90); RED CELL DISTRIBUTION WIDTH 13.1 % (11.6-17.2); WHITE BLOOD COUNT 8.3 TH/MM3 (4.0-11.0)
[2017-05-19] MEDS: LEVOTHYROXINE SODIUM 100 MCG VIAL IV PUSH SCH (05:56)
[2017-05-19] MEDS: DEXAMETHASONE SOD PHOS 4 MG/ML VIAL IV PUSH SCH ×3 (05:56→20:26)
[2017-05-19] MEDS: VANCOMYCIN INJ 1,250 MG in SODIUM CHLOR 0.9% 250 ML INJ 250 ML IV SCH (05:57)
[2017-05-19] MEDS: DOCUSATE SODIUM 50 MG/SENNA 8.6 MG TAB PO SCH ×2 (08:43→20:27)
[2017-05-19] MEDS: SODIUM CHLOR 0.9% 1000 ML INJ 1,000 ML IV SCH (08:43)
[2017-05-19] MEDS: PANTOPRAZOLE SODIUM 40 MG VIAL IV PUSH SCH (08:43)
[2017-05-19] MEDS: SODIUM CHLORIDE 0.9% FLUSH 10 ML FLUSH IV FLUSH SCH ×2 (08:43→20:27)
--- NOTE | 2017-05-19 10:08 | HHI.CCPN ---
Subjective Remarks/Hospital Course The patient is a 76-year-old male with H/O head and neck cancer which he currently is in remission for the past 7.5 years. The patient presented to ED with complaints of "funny feeling in his throat and neck." Patient reports that last night, he had a sore throat, reports that he woke up this morning with increased swelling to the left side of his neck. Patient reports that he found it difficult to swallow pills, and is concerned that he may have recurrent head and neck cancer. Patient reports that his oncologist Dr. Day, his radiation oncologist is Dr. Arroyo and his ENT doctor is Dr. Ibrahim. Patient reports that there was no surgical intervention for his head and neck cancer, he did receive 35 doses of radiation treatments and reports that he has been in remission for the past 7.5 years. Patient denies any problems breathing , reports that he thinks that he is having an allergic reaction this time. Patient reports that he is able to swallow fluids, reports that he is not able to swallow his pills. Critical care medicine was consulted for management. ENT was consulted, Dr. Olson and upon my arrival to the ED, the patient was examined with fiberoptic and evaluation revealed a patent airway, functional mobility of vocal cords, with slight scarring, notably edematous epiglottis, no narrowing below the vocal cords. Room air O2 saturation was noted to be 95-96% , no dyspnea noted. Subjective: 05/18: No acute events overnight. The patient was maintained on O2 via nasal cannula for the most of the evening with removal early this a.m. maintaining O2 sat 95-97%. No respiratory distress. Patient continues on multiple antibiotics , steroids and racemic epinephrine. Noted reddened area less than today, submandibular soft tissue edema slightly decreased. 05/19: Resting comfortably. Denies any shortness of breath or stridor. Cough seems improved significantly. Objective Vital Signs Date Time Temp Pulse Resp B/P (MAP) Pulse Ox O2 Delivery O2 Flow Rate FiO2 05/19/17 08:25 98 21 05/19/17 06:00 51 05/18/17 19:41 Nasal Cannula 05/17/17 17:10 2.00 05/17/17 15:50 05/17/17 14:19 22 05/17/17 08:38 98.0 Intake and Output 05/19/17 05/19/1705/20/17 08:00 16:00 00:00 Intake Total 1200 ml Output Total 550 ml Balance -550 ml 1200 ml Result Diagram: 05/19/17 0450 05/18/17 0412 Other Results Microbiology Date/Time Source Procedure Growth Status 05/17/17 09:40 Throat Group A Streptococcus Screen - Final NO GP A BETA STREP ISOLATED. Complete 05/17/17 09:40 Throat Group A Streptococcus Screen (AVE) - Final Complete Imaging Last Impressions Neck CT 05/17/17 0000 Signed Impressions: Service Date/Time: Wednesday, May 17, 2017 11:39 - CONCLUSION: Abnormal asymmetric soft tissue involving the left mucosal surface of the oropharynx and hypopharynx extending inferiorly to the piriform recess. There is also thickening/edema of the epiglottis. Findings are suspicious for a malignant process. Suggest direct visualization of this area for further assessment. Pasquale Garcia MD Objective Remarks GENERAL: Well-nourished well-developed male of appropriate stated age, in no acute distress SKIN: Warm and dry. HEAD: Atraumatic. Normocephalic. EYES: Pupils equal and round. No scleral icterus. No injection or drainage. ENT: No nasal bleeding or discharge. Mucous membranes pink and moist. Slight elevation left side of floor of mouth noted, with multiple caries/poor dentition NECK: Trachea midline. No JVD. Noted edematous submental and submandibular area left CARDIOVASCULAR: Normal rate, regular rhythm. RESPIRATORY: No accessory muscle use. Clear to auscultation. Breath sounds equal bilaterally. GASTROINTESTINAL: Abdomen soft, non-tender, nondistended. No guarding. MUSCULOSKELETAL: Extremities without clubbing, cyanosis, or edema. No obvious deformities. NEUROLOGICAL: Awake and alert. RASS 0. No gross focal/sensory deficits. Follows commands in all 4 extremities. A/P Assessment and Plan This is a 76-year-old male with a history of carcinoma of the neck status post XRT, in remission for 7 years that has developed pharyngitis, and now presenting with progression of dysphagia over the last 24 hours. Differential diagnosis include Berhane's angina, initial signs of a submental infection or carcinoma recurrence. The patient currently has a patent airway but is at extremely high risk for emergent intubation/ cricothyrotomy and/or emergency tracheostomy due to possible acute respiratory compromise. The patient is critically ill. ASSESSMENT Submental submandibular abscess Berhane's angina Epiglottitis Possible carcinoma recurrence S/P XRT 35 treatments,in remission x 7 years PLAN ENT consulted- Dr. Olson following 05/17 Obtained Fiberoptic evaluation in ED - epiglottitis, patent airway, no vocal cord edema, slight scarring, complete mobility abduction and adduction of vocal cords 05/17-CT neck-abnormal asymmetric soft tissue edema involving the left mucosal surface of the oropharynx and hypopharynx extending inferiorly to the form recess. Thickening and edema of the epiglottis. Suspicion for malignant process. . Decadron 10 mg every 8 hours Zosyn 4.5GM every 6 hours Rocephin 1 g every 12 hours Vancomycin-consult pharmacy Continue Racemic epi nebulizers every 3 hours Maintain nothing by mouth status Normal saline IV fluids Provide small size ETT's at bedside 4.5->5.5, and cricothyrotomy kit Maintain O2 saturation greater than 92% patient currently on room air Closely monitor for signs of airway compromise-such as inability to control secretions, decreasing O2 sat, stridorous respirations and/or dyspnea. Have all respiratory equipment maintained at bedside, to include small endotracheal tubes percutaneous trach set, Blue Rh[place], difficult airway equipment. General surgery consulted-Dr. Oliva Consulted Dr. Day from oncology to follow-up regarding head and neck cancer and to review imaging studies. Advance to full liquid diet and will obtain swallow eval. Consult and transferred to hospitalist service for further medical management. Jack Rosales MD May 19, 2017 10:08
[2017-05-19] MEDS: TIMOLOL MALEATE 0.5% OPHT SOLN 5 ML BTL EACH EYE SCH (16:15)
[2017-05-19] MEDS: VANCOMYCIN INJ 1,500 MG in SODIUM CHLORID 0.9% 500 ML INJ 500 ML IV SCH (20:27)
[2017-05-20] VITALS (34 sets, daily range): BP systolic 127–213; BP diastolic 63–91; PULSE 30–103; RESP 17–37; TEMP 97.4–98.1; O2SAT 91–100
[2017-05-20] MEDS: PIPERACIL-TAZO 4.5 GM PREMIX 100 ML IV SCH ×4 (01:13→20:23)
[2017-05-20] MEDS: RESP: RACEPINEPHRINE 2.25% 0.5 ML NEB NEB SCH ×6 (02:00→17:04)
[2017-05-20] MEDS: SODIUM CHLOR 0.9% 1000 ML INJ 1,000 ML IV SCH ×2 (03:00→14:06)
[2017-05-20] MEDS: VANCOMYCIN INJ 1,500 MG in SODIUM CHLORID 0.9% 500 ML INJ 500 ML IV SCH ×2 (04:00→17:32)
[2017-05-20] MEDS: CHLORHEXIDINE GLUCONATE 2 % 1 PACK (2 CLOTHS) TOP SCH (04:00)
[2017-05-20] MEDS: cefTRIAXone INJ 1,000 MG in SODIUM CHLORIDE 0.9% INJ 100 ML IV SCH ×2 (05:24→16:32)
[2017-05-20] MEDS: DEXAMETHASONE SOD PHOS 4 MG/ML VIAL IV PUSH SCH ×3 (05:27→20:24)
[2017-05-20] MEDS: LEVOTHYROXINE SODIUM 100 MCG VIAL IV PUSH SCH (05:27)
[2017-05-20] MEDS: DOCUSATE SODIUM 50 MG/SENNA 8.6 MG TAB PO SCH ×2 (08:15→20:22)
[2017-05-20] MEDS: PANTOPRAZOLE SODIUM 40 MG VIAL IV PUSH SCH (08:15)
[2017-05-20] MEDS: SODIUM CHLORIDE 0.9% FLUSH 10 ML FLUSH IV FLUSH SCH ×2 (08:15→20:22)
[2017-05-20] MEDS: TIMOLOL MALEATE 0.5% OPHT SOLN 5 ML BTL EACH EYE SCH (08:15)
--- NOTE | 2017-05-20 08:26 | PD.CONS ---
HPI Service CV Consult Requested By Reason for Consult bradycardia Primary Care Physician Unknown History of Present Illness Here with h/o head and neck cancer in remission for last 7.5 years admitted for odynophagia and a "funny feeling in his neck" He states he can not swallow pills. He also has carotid artery disease s/p right CEA at the time that his cancer was found. As for his bradycardia he states he has been running for the past 20 years and has completed 15 marathons and multiple triathlons. He states that his heart rate usually runs in the 40's. He denies any chest pain, shortness of breath, palpitations or lightheadedness (David Long) Review of Systems Consitutional: DENIES: Fatigue, Fever, Chills, Weight gain, Weight loss Eyes: DENIES: Amaurosis Fugax, Change in vision HEENT: DENIES: Lightheadedness, Change in hearing Respiratory: DENIES: See HPI, Cough, Snoring, Shortness of breath, Wheezing, Sputum production Cardiovascular: COMPLAINS OF: See HPI Gastrointestinal: DENIES: Nausea, Vomiting, Change in bowel habits, Reflux, Bloody stools, Melena Genitourinary: DENIES: Urinary incontinence, Difficulty voiding Integumentary: DENIES: Rash Neurologic: DENIES: Tingling or numbness, Memory problems, Poor Balance, Stroke symptoms Musculoskeletal: DENIES: Joint pain, Muscle pain, Limited range of motion, Back pain Psychiatric: DENIES: Anxiety, Depression, Sleep disturbances Hematologic: DENIES: Bruising tendencies, Bleeding tendencies Endocrine: DENIES: Weight gain, Weight loss, Thyroid disease (David Long ) Past Family Social History Allergies: Coded Allergies: No Known Allergies (Verified , 05/17/17) Past Medical History See HPI Olvera's esophagus Past Surgical History see HPI lymph node biopsy Reported Medications Reported Meds & Active Scripts Active Reported Timoptic Opth Drops (Timolol Opth Drops) 0.25 % Soln 1 Drop EACH EYE DAILY Omeprazole 40 Mg Cap 40 Mg PO BID Levothyroxine (Levothyroxine Sodium) 88 Mcg Tab 88 Mcg PO DAILY Allopurinol 300 Mg Tab 300 Mg PO DAILY Active Ordered Medications Current Medications Medications (Trade) Dose Ordered Sig/Shilpa Route Start Time Stop Time Status Last Admin Sodium Chloride 1,000 ml @ 50 mls/hr Q20H IV 05/17/17 15:00 05/20/17 03:00 (NS Flush) 2 ml UNSCH PRN IV FLUSH 05/17/17 14:30 (NS Flush) 2 ml BID IV FLUSH 05/17/17 21:00 05/19/17 20:27 (Protonix Inj) 40 mg DAILY IV PUSH 05/18/17 09:00 05/19/17 08:43 (Duoneb Neb) 1 ampule Q4HR NEB PRN INH 05/17/17 14:30 Miscellaneous Information 1 Q361D XX 05/17/17 14:30 05/17/17 14:30 (Chlorhexidine 2% Cloth) 3 pack Taper DAILY@04 TOP 05/18/17 04:00 05/14/18 03:59 05/20/17 04:00 (Chlorhexidine 2% Cloth) 3 pack UNSCH PRN TOP 05/17/17 14:30 (Cortney-Colace) 1 tab BID PO 05/17/17 21:00 05/19/17 20:27 (Milk Of Magnesia Liq) 30 ml Q12H PRN PO 05/17/17 14:30 (Senokot) 17.2 mg Q12H PRN PO 05/17/17 14:30 (Dulcolax Supp) 10 mg DAILY PRN RECTAL 05/17/17 14:30 (Lactulose Liq) 30 ml DAILY PRN PO 05/17/17 14:30 Piperacillin Sod/ Tazobactam Sod 100 ml @ 200 mls/hr Q6H IV 05/17/17 20:00 05/20/17 01:13 Ceftriaxone Sodium 1000 mg/ Sodium Chloride 100 ml @ 200 mls/hr Q12H IV 05/17/17 16:00 05/20/17 05:24 (Decadron Inj) 10 mg Q8HR IV PUSH 05/17/17 22:00 05/20/17 05:27 (Synthroid Inj) 44 mcg DAILY@06 IV PUSH 05/18/17 06:00 05/20/17 05:27 Pharmacy Profile Note 0 ml @ 0 mls/hr UNSCH OTHER 05/17/17 16:00 (Racepinephrine 2.25% Neb) 0.5 ml Q3HR NEB NEB 05/18/17 12:00 05/20/17 08:01 Vancomycin HCl 1500 mg/Sodium Chloride 515 ml @ 257.5 mls/ hr Q12H IV 05/19/17 16:00 05/20/17 04:00 Miscellaneous Information SPECIFIC LAB TO BE ... ONCE ONCE .XX 05/20/17 15:45 05/20/17 15:46 (Timoptic 0.5% Opth Soln) 1 drop DAILY EACH EYE 05/19/17 15:00 05/19/17 16:15 Family History noncontributory Social History never smoker daily beer denies substance abuse (David Long) Physical Exam Vital Signs Vital Signs Date Time Temp Pulse Resp B/P (MAP) Pulse Ox O2 Delivery O2 Flow Rate FiO2 05/20/17 08:01 100 21 05/20/17 06:00 40 05/20/17 04:00 97.4 40 17 149/72 (97) 93 05/20/17 04:00 34 05/20/17 02:00 35 05/20/17 00:00 41 05/20/17 00:00 98.1 41 19 127/63 (84) 91 05/19/17 22:00 49 05/19/17 20:55 99 05/19/17 20:00 48 05/19/17 20:00 97.6 48 20 124/64 (84) 94 05/19/17 18:00 39 05/19/17 16:00 98.0 43 20 135/69 (91) 97 05/19/17 16:00 43 05/19/17 15:00 48 05/19/17 14:00 57 05/19/17 12:00 42 05/19/17 12:00 42 25 143/71 (95) 97 05/19/17 12:00 97.9 05/19/17 11:00 52 23 144/82 (102) 98 05/19/17 11:00 52 05/19/17 10:00 46 19 132/65 (87) 94 05/19/17 10:00 46 05/19/17 09:00 57 21 128/65 (86) 94 05/19/17 08:25 98 21 Physical Exam GENERAL: Well-nourished, well-developed patient in no apparent distress. NECK: No JVD. No carotid bruit. CARDIOVASCULAR: bradycardic regular. S1/S2 no murmur, rub, or gallop. RESPIRATORY: No accessory muscle use. Clear to auscultation. Breath sounds equal bilaterally. GASTROINTESTINAL: Abdomen soft, non-tender, nondistended. MUSCULOSKELETAL: Extremities without clubbing, cyanosis, or edema. Laboratory Laboratory Tests Test 05/20/17 04:52 Creatinine 0.76 Estimat Glomerular Filtration Rate 100 Date/Time Source Procedure Growth Status 05/17/17 09:40 Throat Group A Streptococcus Screen - Final NO GP A BETA STREP ISOLATED. Complete (David Long) Result Diagram: 05/19/17 04505/20/17 045 Assessment and Plan Problem List: (1) Bradycardia ICD Codes: R00.1 - Bradycardia, unspecified Status: Chronic Assessment and Plan bradycardia is likely secondary to his years of aerobic exercise. He is asymptomatic. His blood pressure is high at my interview if it continues to be so I would recommend LEONARD-I sign off, call with further questions (David Long) Assessment and Plan agree with above sinus bradycardia no conduction disease no symptoms augments HR appropriately with ambulation no indication for PPM monitor BP, normally low at home. given circumstances in the hospital, likely elevated due to stress/anxiety call with further questions thanks (Xavi Lofton MD) David Long May 20, 2017 08:26 Xavi Lofton MD May 20, 2017 09:00
--- NOTE | 2017-05-20 12:58 | EKG ---
Date Performed: 05/20/2017 Time Performed: 07:00:51 PTAGE: 76 years EKG: SINUS BRADYCARDIA BORDERLINE ECG PREVIOUS TRACING : 03/11/2012 16.41 Sinus bradycardia new from the old tracing, otherwise no ch hermilo. DOCTOR: Nura Crystal Interpretating Date/Time 05/20/2017 13:51:10
[2017-05-20] MEDS ORDERED: PHARMACY ORDERED LAB ONE (15:45)
--- NOTE | 2017-05-20 17:27 | HHI.PR ---
Subjective Remarks No new complaints. Pt denies SOB. Pt is tolerating regular diet. Objective Vitals Vital Signs Date Time Temp Pulse Resp B/P (MAP) Pulse Ox O2 Delivery O2 Flow Rate FiO2 05/20/17 17:01 49 05/20/17 17:00 44 24 95 05/20/17 17:00 44 05/20/17 16:00 75 05/20/17 16:00 75 20 133/91 (105) 95 05/20/17 16:00 75 20 133/91 (105) 95 05/20/17 16:00 98.1 05/20/17 16:00 97.9 05/20/17 14:18 103 05/20/17 14:00 95 05/20/17 13:05 51 05/20/17 13:05 51 24 146/73 (97) 96 05/20/17 13:00 42 05/20/17 13:00 42 18 95 05/20/17 12:01 45 05/20/17 12:01 45 20 128/72 (90) 94 05/20/17 12:00 46 20 95 05/20/17 12:00 46 05/20/17 12:00 97.7 05/20/17 10:01 62 29 135/64 (87) 96 05/20/17 10:01 62 05/20/17 10:00 46 05/20/17 10:00 46 27 97 05/20/17 09:05 34 18 168/77 (107) 97 05/20/17 09:00 33 23 198/84 (122) 98 05/20/17 08:48 35 22 165/76 (105) 94 05/20/17 08:24 39 32 188/91 (123) 96 05/20/17 08:21 38 19 213/86 (128) 97 05/20/17 08:19 36 20 191/83 (119) 96 05/20/17 08:17 37 29 201/88 (125) 98 05/20/17 08:07 42 37 190/90 (123) 100 05/20/17 08:05 36 18 204/88 (126) 100 05/20/17 08:04 35 18 207/87 (127) 99 05/20/17 08:03 37 20 188/89 (122) 97 05/20/17 08:01 100 21 05/20/17 08:01 34 20 191/82 (118) 98 05/20/17 08:00 35 23 97 05/20/17 08:00 97.6 05/20/17 08:00 30 05/20/17 06:00 40 05/20/17 04:00 97.4 40 17 149/72 (97) 93 05/20/17 04:00 34 05/20/17 02:00 35 05/20/17 00:00 41 05/20/17 00:00 98.1 41 19 127/63 (84) 91 05/19/17 22:00 49 05/19/17 20:55 99 05/19/17 20:00 48 05/19/17 20:00 97.6 48 20 124/64 (84) 94 05/19/17 18:00 39 05/20/17 05/20/17 05/21/17 15:00 23:00 07:00 Intake Total 1100 ml 100 ml Balance 1100 ml 100 ml IV Total 1100 ml 100 ml Result Diagram: 05/19/17 0450 05/20/17 0452 Imaging Last Impressions Neck CT 05/17/17 0000 Signed Impressions: Service Date/Time: Wednesday, May 17, 2017 11:39 - CONCLUSION: Abnormal asymmetric soft tissue involving the left mucosal surface of the oropharynx and hypopharynx extending inferiorly to the piriform recess. There is also thickening/edema of the epiglottis. Findings are suspicious for a malignant process. Suggest direct visualization of this area for further assessment. Pasquale Garcia MD Objective Remarks GENERAL: This is a well-nourished, well-developed patient, in no apparent distress. CARDIOVASCULAR: Regular rate and rhythm without murmurs, gallops, or rubs. RESPIRATORY: Clear to auscultation. Breath sounds equal bilaterally. No wheezes , rales, or rhonchi. GASTROINTESTINAL: Abdomen soft, non-tender, nondistended. Normal active bowel sounds MUSCULOSKELETAL: Extremities without clubbing, cyanosis, or edema. NEURO: Alert & Oriented x4 to person, place, time, situation. Moves all ext x4 A/P Problem List: (1) Epiglottitis ICD Codes: J05.10 - Acute epiglottitis without obstruction Status: Acute Plan: - comgmt with ENT - stop racemic epinephrin - decadron - vancomycin, zosyn - will d/w ENT - will d/w Oncology, Dr. Day - anticipate d/c to home in 2-3 days (2) Bradycardia ICD Codes: R00.1 - Bradycardia, unspecified Status: Chronic Plan: - comgmt with Cardiology - Carlos Jacobs DO May 20, 2017 17:27
[2017-05-20] MEDS ORDERED: ENALAPRILAT 1.25 MG/ML VIAL IV PRN (17:30)
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
[2017-05-21] VITALS (12 sets, daily range): BP systolic 135–180; BP diastolic 67–95; PULSE 34–48; RESP 14–70; TEMP 96.7–98.2; O2SAT 94–97
[2017-05-21] MEDS: PIPERACIL-TAZO 4.5 GM PREMIX 100 ML IV SCH ×2 (03:29→08:10)
[2017-05-21] MEDS: cefTRIAXone INJ 1,000 MG in SODIUM CHLORIDE 0.9% INJ 100 ML IV SCH (03:29)
[2017-05-21] MEDS: VANCOMYCIN INJ 1,500 MG in SODIUM CHLORID 0.9% 500 ML INJ 500 ML IV SCH (03:30)
[2017-05-21] MEDS: CHLORHEXIDINE GLUCONATE 2 % 1 PACK (2 CLOTHS) TOP SCH (03:30)
[2017-05-21] MEDS: LEVOTHYROXINE SODIUM 100 MCG VIAL IV PUSH SCH (04:46)
[2017-05-21] MEDS: DEXAMETHASONE SOD PHOS 4 MG/ML VIAL IV PUSH SCH ×2 (04:46→08:09)
[2017-05-21] MEDS: DOCUSATE SODIUM 50 MG/SENNA 8.6 MG TAB PO SCH ×2 (08:06→20:49)
[2017-05-21] MEDS: PANTOPRAZOLE SODIUM 40 MG VIAL IV PUSH SCH (08:10)
[2017-05-21] MEDS: SODIUM CHLORIDE 0.9% FLUSH 10 ML FLUSH IV FLUSH SCH ×2 (08:11→20:50)
[2017-05-21] MEDS: predniSONE 20 MG TAB PO SCH ×2 (09:38→20:49)
[2017-05-21] MEDS: AMOXICILLIN/CLAVULANATE K 875 MG TAB PO SCH ×2 (09:38→20:49)
[2017-05-21] MEDS: LOSARTAN 50 MG TAB PO SCH ×2 (09:38→20:49)
--- NOTE | 2017-05-21 10:19 | PD.CARD.PN ---
Subjective Subjective Remarks HRs noted asymptomatic Objective Medications Active Medications Amoxicillin/ Clavulanate Potassium (Augmentin) 875 mg Q12HR PO Last administered on 05/21/17 09:38; Admin Dose 875 MG; Start 05/21/17 at 10:00 Clonidine (Catapres) 0.2 mg Q6H PRN PO; Start 05/20/17 at 17:30 Enalaprilat (Vasotec Inj) 1.25 mg Q6H PRN IV; Start 05/20/17 at 17:30 Losartan Potassium (Cozaar) 50 mg Q12HR PO Last administered on 05/21/17 09:38 ; Admin Dose 50 MG; Start 05/21/17 at 09:00 Miscellaneous Information SPECIFIC LAB TO BE ONCE ONCE .XX; Start at 15:45; Stop 05/20/17 at 15:46; Status DC Miscellaneous Information SPECIFIC LAB TO BE DRAWN:VANCO TROUGH DATE TO BE ONCE ONCE .XX; Start 05/21/17 at 15:45; Stop 05/21/17 at 15:46; Status Cancel Prednisone (Deltasone) 20 mg BID PO Last administered on 05/21/17 09:38; Admin Dose 20 MG; Start 05/21/17 at 09:15 Vital Signs / I&O Vital Signs Date Time Temp Pulse Resp B/P (MAP) Pulse Ox O2 Delivery O2 Flow Rate FiO2 05/21/17 10:06 42 25 172/80 (110) 96 05/21/17 10:02 42 05/21/17 08:00 97.6 37 23 174/85 (114) 97 05/21/17 08:00 37 05/21/17 04:00 98.1 35 18 164/77 (106) 94 05/21/17 00:00 98.2 34 14 135/67 (89) 94 05/20/17 21:03 94 21 05/20/17 20:00 98.0 66 24 154/85 (108) 94 05/20/17 19:01 39 05/20/17 19:00 38 05/20/17 18:01 40 05/20/17 18:00 40 05/20/17 17:01 49 05/20/17 17:00 44 24 95 05/20/17 17:00 44 05/20/17 16:00 75 05/20/17 16:00 75 20 133/91 (105) 95 05/20/17 16:00 75 20 133/91 (105) 95 05/20/17 16:00 98.1 05/20/17 16:00 97.9 05/20/17 14:18 103 05/20/17 14:00 95 05/20/17 13:05 51 05/20/17 13:05 51 24 146/73 (97) 96 05/20/17 13:00 42 05/20/17 13:00 42 18 95 05/20/17 12:01 45 05/20/17 12:01 45 20 128/72 (90) 94 05/20/17 12:00 46 20 95 05/20/17 12:00 46 05/20/17 12:00 97.7 I/O 05/20/17 05/20/17 05/20/17 05/21/17 05/21/17 05/21/17 07:00 15:00 23:00 07:00 15:00 23:00 Intake Total 480 ml 1100 ml 1300 ml 1780 ml Output Total 800 ml 650 ml 550 ml 525 ml Balance -320 ml 1100 ml 650 ml 1230 ml -525 ml Intake Oral 480 ml 1200 ml 480 ml IV Total 1100 ml 100 ml 1300 ml Output Urine Total 800 ml 650 ml 550 ml 525 ml # Voids 2 # Bowel Movements 0 1 Physical Exam GENERAL: SKIN: Warm and dry. HEAD: Normocephalic. EYES: No scleral icterus. No injection or drainage. NECK: Supple, trachea midline. No JVD or lymphadenopathy. CARDIOVASCULAR: Regular rate and rhythm without murmurs, gallops, or rubs. RESPIRATORY: Breath sounds equal bilaterally. No accessory muscle use. GASTROINTESTINAL: Abdomen soft, non-tender, nondistended. MUSCULOSKELETAL: No cyanosis, or edema. BACK: Nontender without obvious deformity. No CVA tenderness. Laboratory Laboratory Tests Test 05/20/17 15:45 Vancomycin Level Trough 14.5 MCG/ML Imaging Last Impressions Neck CT 05/17/17 0000 Signed Impressions: Service Date/Time: Wednesday, May 17, 2017 11:39 - CONCLUSION: Abnormal asymmetric soft tissue involving the left mucosal surface of the oropharynx and hypopharynx extending inferiorly to the piriform recess. There is also thickening/edema of the epiglottis. Findings are suspicious for a malignant process. Suggest direct visualization of this area for further assessment. Pasquale Garcia MD Assessment and Plan Problem List: (1) Bradycardia ICD Codes: R00.1 - Bradycardia, unspecified Status: Chronic Assessment and Plan sinus bradycardia - asymptomatic but HRs dropping into low 30's. no high grade conduction disease. no AVN blocking agents. No CP. TSH elevated in January but T4 normal. repeat thyroid labs pending. 24 hr holter for HR variability. may consider eval to augment HR appropriately with ETT at low cardiac workload check echo to document EF, if PPM needed (rule out cardiomyopathy) discussed with EP, dr rincon to see. thanks Xavi Lofton MD May 21, 2017 10:19
[2017-05-21] MEDS: SODIUM CHLOR 0.9% 1000 ML INJ 1,000 ML IV SCH (10:26)
[2017-05-21] MEDS: TIMOLOL MALEATE 0.5% OPHT SOLN 5 ML BTL EACH EYE SCH (11:55)
[2017-05-21 13:38] LABS: FREE T4 0.76 NG/DL (0.76-1.46)
--- NOTE | 2017-05-21 13:47 | PD.ONC.PN ---
Subjective Subjective Remarks No neck pain or dysphagia. No CP/SOB. Objective Data Date Time Temp Pulse Resp B/P (MAP) Pulse Ox O2 Delivery O2 Flow Rate FiO2 05/21/17 12:00 44 05/21/17 12:00 97.9 44 22 169/80 (109) 95 05/21/17 10:06 42 25 172/80 (110) 96 05/21/17 10:02 42 05/21/17 08:00 97.6 37 23 174/85 (114) 97 05/21/17 08:00 37 05/21/17 04:00 98.1 35 18 164/77 (106) 94 05/21/17 00:00 98.2 34 14 135/67 (89) 94 05/20/17 21:03 94 21 05/20/17 20:00 98.0 66 24 154/85 (108) 94 05/20/17 19:01 39 05/20/17 19:00 38 05/20/17 18:01 40 05/20/17 18:00 40 05/20/17 17:01 49 05/20/17 17:00 44 24 95 05/20/17 17:00 44 05/20/17 16:00 75 05/20/17 16:00 75 20 133/91 (105) 95 05/20/17 16:00 75 20 133/91 (105) 95 05/20/17 16:00 98.1 05/20/17 16:00 97.9 05/20/17 14:18 103 05/20/17 14:00 95 05/21/17 05/21/17 05/21/17 07:00 15:00 23:00 Intake Total 1780 ml 1100 ml Output Total 550 ml 525 ml Balance 1230 ml 575 ml Result Diagram: 05/19/17 0450 05/20/17 0452 Laboratory Results Laboratory Tests Test 05/20/17 15:45 05/21/17 12:36 Vancomycin Level Trough 14.5 MCG/ML Free Thyroxine 0.76 NG/DL Thyroid Stimulating Hormone 3rd Gen 0.957 uIU/ML Administered Medications Medications (Trade) Dose Ordered Sig/Shilpa Route PRN Reason Start Time Stop Time Status Last Admin Dose Admin Sodium Chloride 1,000 ml @ 50 mls/hr Q20H IV 05/17/17 15:00 05/21/17 10:26 Sodium Chloride (NS Flush) 2 ml BID IV FLUSH 05/17/17 21:00 05/21/17 08:11 Pantoprazole Sodium (Protonix Inj) 40 mg DAILY IV PUSH 05/18/17 09:00 05/21/17 08:10 Miscellaneous Information 1 Q361D XX 05/17/17 14:30 05/17/17 14:30 Chlorhexidine Gluconate (Chlorhexidine 2% Cloth) 3 pack Taper DAILY@04 TOP 05/18/17 04:00 05/14/18 03:59 05/21/17 03:30 Senna/Docusate Sodium (Cortney-Colace) 1 tab BID PO 05/17/17 21:00 05/21/17 08:06 Levothyroxine Sodium (Synthroid Inj) 44 mcg DAILY@06 IV PUSH 05/18/17 06:00 05/21/17 04:46 Timolol Maleate (Timoptic 0.5% Opth Soln) 1 drop DAILY EACH EYE 05/19/17 15:00 05/21/17 11:55 Losartan Potassium (Cozaar) 50 mg Q12HR PO 05/21/17 09:00 05/21/17 09:38 Amoxicillin/ Clavulanate Potassium (Augmentin) 875 mg Q12HR PO 05/21/17 10:00 05/21/17 09:38 Prednisone (Deltasone) 20 mg BID PO 05/21/17 09:15 05/21/17 09:38 Objective Remarks GENERAL: Well-nourished, well-developed patient. SKIN: Warm and dry. HEAD: Normocephalic. EYES: No scleral icterus. No injection or drainage. NECK: Supple, trachea midline. No JVD or lymphadenopathy. Fullness left submandibular area almost completely resolved. LYMPHATIC: No adenopathy. CARDIOVASCULAR: Regular rate and rhythm without murmurs. RESPIRATORY: Breath sounds equal bilaterally. No accessory muscle use. GASTROINTESTINAL: Abdomen soft, non-tender, nondistended. EXTREMITIES: No cyanosis, or edema. MUSCULOSKELETAL: Adequate muscle tone. NEUROLOGICAL: No obvious focal deficit. Awake, alert, and oriented x3. PSYCHIATRIC: Appropriate mood and affect; insight and judgment normal. Assessment/Plan Assessment 1. Berhane's angina. He presented with acute neck swelling and dysphagia. CT of the neck showed abnormal asymmetric soft tissue involving the left mucosal surface of the oropharynx and hypopharynx extending inferiorly to the piriform sinus. There was thickening and edema of the epiglottis. He was seen by Dr. Olson. ENT exam showed some inflammatory changes and edema but no mass noted. He was treated with antibiotics and steroids, and his symptoms have significantly improved. I doubt that he has recurrent head and neck cancer. 05/21/17 Symptoms have resolved. Left submandibular fullness almost completely resolved. 2. 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 He was treated with radiation with cisplatin, completed in October 2009. It has been more than 7 years since his treatment. There is no clear evidence of recurrent disease. Plan Plan:: 1. Continue antibiotics and steroids per ENT. 2. Patient can follow up with oncology after discharge and can consider getting a PET scan st that time. Jose Day MD May 21, 2017 13:47
[2017-05-21] MEDS ORDERED: PHARMACY ORDERED LAB ONE (15:45)
--- NOTE | 2017-05-21 18:38 | HHI.PR ---
Subjective Remarks Patient reports feeling well denies SOB, difficulty swallowing, dizziness or feeling lightheaded offers no specific complaints Objective Vitals Vital Signs Date Time Temp Pulse Resp B/P (MAP) Pulse Ox O2 Delivery O2 Flow Rate FiO2 05/21/17 16:54 96 21 05/21/17 16:00 41 05/21/17 16:00 97.8 41 70 163/79 (107) 96 05/21/17 14:00 48 05/21/17 12:00 44 05/21/17 12:00 97.9 44 22 169/80 (109) 95 05/21/17 10:06 42 25 172/80 (110) 96 05/21/17 10:02 42 05/21/17 08:00 97.6 37 23 174/85 (114) 97 05/21/17 08:00 37 05/21/17 04:00 98.1 35 18 164/77 (106) 94 05/21/17 00:00 98.2 34 14 135/67 (89) 94 05/20/17 21:03 94 21 05/20/17 20:00 98.0 66 24 154/85 (108) 94 05/20/17 19:01 39 05/20/17 19:00 38 05/21/17 05/21/17 05/22/17 15:00 23:00 07:00 Intake Total 1100 ml 383 ml Output Total 525 ml Balance 575 ml 383 ml IV Total 1100 ml 383 ml Output Urine Total 525 ml Result Diagram: 05/19/17 0450 05/20/17 0452 Other Results Laboratory Tests Test 05/19/17 04:50 05/20/17 04:52 05/20/17 15:45 05/21/17 12:36 White Blood Count 8.3 TH/MM3 Red Blood Count 3.91 MIL/MM3 Hemoglobin 13.1 GM/DL Hematocrit 38.2 % Mean Corpuscular Volume 97.7 FL Mean Corpuscular Hemoglobin 33.6 PG Mean Corpuscular Hemoglobin Concent 34.4 % Red Cell Distribution Width 13.1 % Platelet Count 105 TH/MM3 Mean Platelet Volume 8.6 FL Neutrophils (%) (Auto) 82.0 % Lymphocytes (%) (Auto) 14.6 % Monocytes (%) (Auto) 3.4 % Eosinophils (%) (Auto) 0.0 % Basophils (%) (Auto) 0.0 % Neutrophils # (Auto) 6.8 TH/MM3 Lymphocytes # (Auto) 1.2 TH/MM3 Monocytes # (Auto) 0.3 TH/MM3 Eosinophils # (Auto) 0.0 TH/MM3 Basophils # (Auto) 0.0 TH/MM3 CBC Comment DIFF FINAL Differential Comment Vancomycin Level Trough 8.4 MCG/ML 14.5 MCG/ML Creatinine 0.76 MG/DL Estimat Glomerular Filtration Rate 100 ML/MIN Free Thyroxine 0.76 NG/DL Thyroid Stimulating Hormone 3rd Gen 0.957 uIU/ML Imaging Last Impressions Neck CT 05/17/17 0000 Signed Impressions: Service Date/Time: Friday, May 17, 2017 11:39 - CONCLUSION: Abnormal asymmetric soft tissue involving the left mucosal surface of the oropharynx and hypopharynx extending inferiorly to the piriform recess. There is also thickening/edema of the epiglottis. Findings are suspicious for a malignant process. Suggest direct visualization of this area for further assessment. Pasquale Garcia MD Objective Remarks GENERAL: This is a well-nourished, well-developed patient, in no apparent distress. Hoarse voice CARDIOVASCULAR: Bradycardia RESPIRATORY: Clear to auscultation. Breath sounds equal bilaterally. No wheezes , rales, or rhonchi. GASTROINTESTINAL: Abdomen soft, non-tender, nondistended. Normal active bowel sounds MUSCULOSKELETAL: Extremities without clubbing, cyanosis, or edema. NEURO: Alert & Oriented x4 to person, place, time, situation. Moves all ext x4 A/P Problem List: (1) Epiglottitis ICD Codes: J05.10 - Acute epiglottitis without obstruction Status: Acute Plan: - comgmt with ENT - stop racemic epinephrin - Decadron transitioned to PO Prednisone - vancomycin, zosyn transitioned to PO now on Augment - Followed by ENT Dr. Olson - Also followed by Dr. Day recommends outpatient f/u and possible PET scan as outpatient (2) Bradycardia ICD Codes: R00.1 - Bradycardia, unspecified Status: Chronic Plan: - comgmt with Cardiology - TSH 0.957, free t4 0.76 - asymptomatic bradycardia - Discussed with Dr. Lofton who recommends 24 hour Holter monitor, 2 D echo to evaluate EF - Consult placed to Dr. Darden for further evaluation of bradycardia Assessment and Plan Patient examined. Assessment and plan formulated with Rere Davila PA-C. I agree with the above. Rere Davila May 21, 2017 18:38 Carlos Xie DO May 24, 2017 00:38
[2017-05-21] MEDS: cloNIDine HCL 0.2 MG TAB PO PRN (22:17)
--- NOTE | 2017-05-21 23:50 | MB ---
cc: ARMAND HUNT M.D. DATE OF CONSULTATION: 05/21/2017 REASON FOR CONSULTATION: Severe bradycardia. HISTORY OF PRESENT ILLNESS: Mr. Mancia is a 76 year-old gentleman with Berhane's angina, squamous cell carcinoma treated around 7-1/2 years ago, was admitted due to dysphagia and neck swelling. During hospitalization he developed severe bradycardia. Heart rate in the 30s. I was consulted for evaluation and management. The chart was reviewed. The patient was evaluated. ALLERGIES None. SOCIAL HISTORY Drinks around four beers a day. Denies smoking. FAMILY HISTORY Noncontributory to his current medical condition. MEDICATIONS 1. Amoxicillin. 2. acid. 3. Prednisone 4. Cozaar 5. Coumadin p.r.n. 6. Protonix 7. Synthroid REVIEW OF SYSTEMS Currently refers no chest pain, feeling better. No vomiting. No fevers. PHYSICAL EXAMINATION: Alert, fully oriented. His blood pressure was 163/79, pulse 41 on the monitor. Respiratory rate 18. LUNGS: Ventilated. CARDIOVASCULAR: S1-S2, regular, no gallop. ABDOMEN: Soft, no masses, no bruits. EXTREMITIES: No edema. Electrocardiogram: Sinus bradycardia. LABORATORY DATA: Hemoglobin 13.1, white blood cell 8.3, creatinine 0.85, potassium 3.5. INR 1.0. ASSESSMENT AND RECOMMENDATIONS Mr. Mancia has severe bradycardia. He looks younger than his chronological age. The gentleman was very active. [place] was [place] five [place]. When he was talking to me, his heart rate increased. He was asymptomatic. The gentleman may have very high tone. He used to run 9-1/2 miles in the past. At this point my recommendation is observation. The gentleman is not symptomatic. There is no indication for pacing support. I recommend to continue his current management. I will follow him during hospitalization. Armand Hunt MD /DREW /11:24 PM /11:32 PM
[2017-05-22] VITALS: BP 152/72; PULSE 39; RESP 17; O2SAT 97
[2017-05-22 02:00] VITALS: PULSE 32
[2017-05-22] MEDS: cloNIDine HCL 0.2 MG TAB PO PRN (03:43)
[2017-05-22 04:00] VITALS: BP 163/76; PULSE 31; RESP 21; TEMP 98.6; O2SAT 96
[2017-05-22] MEDS: CHLORHEXIDINE GLUCONATE 2 % 1 PACK (2 CLOTHS) TOP SCH (04:00)
[2017-05-22] MEDS: SODIUM CHLOR 0.9% 1000 ML INJ 1,000 ML IV SCH (04:34)
[2017-05-22 06:00] VITALS: PULSE 40
[2017-05-22] MEDS: LEVOTHYROXINE SODIUM 100 MCG VIAL IV PUSH SCH (06:59)
[2017-05-22 07:12] VITALS: O2SAT 98
--- NOTE | 2017-05-22 08:22 | PD.CARD.PN ---
Subjective Subjective Remarks denies CV complaints Objective Vital Signs / I&O Vital Signs Date Time Temp Pulse Resp B/P (MAP) Pulse Ox O2 Delivery O2 Flow Rate FiO2 05/22/17 06:00 40 05/22/17 04:00 31 05/22/17 04:00 98.6 31 21 163/76 (105) 96 05/22/17 02:00 32 05/22/17 00:00 39 17 152/72 (98) 97 05/22/17 00:00 39 05/21/17 22:00 38 05/21/17 20:00 96.7 43 22 180/95 (123) 96 05/21/17 20:00 48 05/21/17 18:00 37 05/21/17 16:54 96 21 05/21/17 16:00 41 05/21/17 16:00 97.8 41 70 163/79 (107) 96 05/21/17 14:00 48 05/21/17 12:00 44 05/21/17 12:00 97.9 44 22 169/80 (109) 95 05/21/17 10:06 42 25 172/80 (110) 96 05/21/17 10:02 42 I/O 05/21/17 05/21/17 05/21/17 05/22/17 05/22/17 05/22/17 07:00 15:00 23:00 07:00 15:00 23:00 Intake Total 1780 ml 1100 ml 1343 ml 1337 ml Output Total 550 ml 525 ml 550 ml 2450 ml Balance 1230 ml 575 ml 793 ml -1113 ml Intake Oral 480 ml 960 ml 720 ml IV Total 1300 ml 1100 ml 383 ml 617 ml Output Urine Total 550 ml 525 ml 550 ml 2450 ml # Bowel Movements 1 0 0 Physical Exam GENERAL: Well-nourished, well-developed patient in no apparent distress. NECK: No JVD. No carotid bruit. CARDIOVASCULAR: bradycardia regular. S1/S2 no murmur, rub, or gallop. RESPIRATORY: No accessory muscle use. Clear to auscultation. Breath sounds equal bilaterally. GASTROINTESTINAL: Abdomen soft, non-tender, nondistended. MUSCULOSKELETAL: Extremities without clubbing, cyanosis, or edema. Laboratory Laboratory Tests Test 05/21/17 12:36 Free Thyroxine 0.76 NG/DL Thyroid Stimulating Hormone 3rd Gen 0.957 uIU/ML Assessment and Plan Problem List: (1) Bradycardia ICD Codes: R00.1 - Bradycardia, unspecified Status: Chronic Assessment and Plan bradycardia is likely secondary to his years of aerobic exercise. He is asymptomatic. If Holter does not show any prolonged sinus pauses he can be discharged home from a CV standpoint sign off, call with further questions David Long May 22, 2017 08:22
[2017-05-22] MEDS: PANTOPRAZOLE SODIUM 40 MG VIAL IV PUSH SCH (09:00)
[2017-05-22] MEDS: TIMOLOL MALEATE 0.5% OPHT SOLN 5 ML BTL EACH EYE SCH (09:00)
[2017-05-22] MEDS: DOCUSATE SODIUM 50 MG/SENNA 8.6 MG TAB PO SCH (09:00)
[2017-05-22] MEDS: LOSARTAN 50 MG TAB PO SCH (11:21)
[2017-05-22] MEDS: predniSONE 20 MG TAB PO SCH (11:21)
[2017-05-22] MEDS: AMOXICILLIN/CLAVULANATE K 875 MG TAB PO SCH (11:21)
[2017-05-22] MEDS: SODIUM CHLORIDE 0.9% FLUSH 10 ML FLUSH IV FLUSH SCH (11:22)
[2017-05-22] MEDS ORDERED: COZA50TA PO (12:29)
[2017-05-22] MEDS ORDERED: AMOX875T2 PO (12:29)
[2017-05-22] MEDS ORDERED: PRED10 PO (12:41)
--- NOTE | 2017-05-22 13:13 | HHI.DS ---
Discharge Summary Admission Date May 17, 2017 at 12:59 Discharge Date: May 22, 2017 Admitting Diagnosis Epiglottitis (1) Epiglottitis ICD Codes: J05.10 - Acute epiglottitis without obstruction Status: Acute (2) Bradycardia ICD Codes: R00.1 - Bradycardia, unspecified Status: Chronic Consultants Dr. Olson ENT Dr. Day Oncology Dr. Lofton Cardiology Dr. Darden EP Dr. Price ICU CBC/BMP: 05/19/17 0450 05/20/17 0452 Significant Findings Laboratory Tests Test 05/20/17 04:52 05/20/17 15:45 05/21/17 12:36 Vancomycin Level Trough 14.5 MCG/ML (5.0-10.0) Imaging Last Impressions Neck CT 05/17/17 0000 Signed Impressions: Service Date/Time: Friday, May 17, 2017 11:39 - CONCLUSION: Abnormal asymmetric soft tissue involving the left mucosal surface of the oropharynx and hypopharynx extending inferiorly to the piriform recess. There is also thickening/edema of the epiglottis. Findings are suspicious for a malignant process. Suggest direct visualization of this area for further assessment. Pasquale Garcia MD PE at Discharge GENERAL: This is a well-nourished, well-developed patient, in no apparent distress. Hoarse voice CARDIOVASCULAR: Bradycardia RESPIRATORY: Clear to auscultation. Breath sounds equal bilaterally. No wheezes , rales, or rhonchi. GASTROINTESTINAL: Abdomen soft, non-tender, nondistended. Normal active bowel sounds MUSCULOSKELETAL: Extremities without clubbing, cyanosis, or edema. NEURO: Alert & Oriented x4 to person, place, time, situation. Moves all ext x4 Hospital Course Epiglottitis - comgmt with ENT - initially on racemic epinephrin which was DC'd - Decadron IV transitioned to PO Prednisone - vancomycin, zosyn transitioned to PO Augment - Followed by ENT Dr. Olson while in hospital patient known to Dr. Johns as an outpatient - Patient has a history of head and neck cancer s/p radiation 7 years ago Also followed by Dr. Day recommends outpatient f/u and possible PET scan as outpatient Bradycardia- asymptomatic - comgmt with Cardiology Dr. Lofton and Dr. Darden - TSH 0.957, free t4 0.76 - Discussed with Dr. Lofton who recommends 24 hour Holter monitor - Per Dr. Darden PPM not indicated at this time HTN Patient started on losartan 50mg BID Pt Condition on Discharge: Stable Discharge Disposition: Discharge Home Discharge Instructions DIET: Follow Instructions for: As Tolerated, No Restrictions Activities you can perform: Regular-No Restrictions Follow up Referrals: Cardiology - [address] Lofton Ear Nose Throat - [address] Johns Oncology - [address] Day PCP Follow-up - [address] Gordillo New Medications: Prednisone (Prednisone) 10 Mg Tab 10 MG PO DIRECTED for steroid taper, #35 TAB 0 Refills Take 20 mg twice a day for 5 days then take 20 mg once a day for 5 days then take 10 mg once a day for 5 days then stop Amoxicillin-Clavulanate (Amoxicillin-Clavulanate) 875-125 mg Tab 875 MG PO Q12HR for antibiotic, #10 TAB 0 Refills not for use in CrCl <30 mL/minute Losartan (Cozaar) 50 Mg Tab 50 MG PO Q12HR for blood pressure, #60 TAB 0 Refills Continued Medications: Allopurinol (Allopurinol) 300 Mg Tab 300 MG PO DAILY for Gout, #30 TAB 0 Refills Levothyroxine (Levothyroxine) 88 Mcg Tab 88 MCG PO DAILY for Thyroid, #30 TAB 0 Refills Omeprazole (Omeprazole) 40 Mg Cap 40 MG PO BID, #30 CAP 0 Refills Timolol Opth Drops (Timoptic Opth Drops) 0.25 % Soln 1 DROP EACH EYE DAILY for Glaucoma, #1 BOTTLE 0 Refills Additional Information Patient examined. Assessment and plan formulated with Rere Davila PA-C. I agree with the above. Rere Davila May 22, 2017 13:13 Carlos Xie DO May 24, 2017 00:39
--- NOTE | 2017-05-22 13:21 | HHI.DCPOC ---
Discharge Care Plan Diagnosis: (1) HTN (hypertension) (2) Epiglottitis (3) Bradycardia Goals to Promote Your Health * To prevent worsening of your condition and complications * To maintain your health at the optimal level Directions to Meet Your Goals Take your medications as prescribed Follow your dietary instruction Follow activity as directed Keep your appointments as scheduled Take your immunizations and boosters as scheduled If your symptoms worsen call your PCP, if no PCP go to Urgent Care Center or Emergency Room Smoking is Dangerous to Your Health. Avoid second hand smoke Call the 24-hour hour crisis hotline for domestic abuse at Rere Davila May 22, 2017 13:21 Carlos Xie DO May 24, 2017 00:40
--- NOTE | 2017-05-22 14:04 | HM ---
Date Performed: 05/21/2017 Time Performed: 14:15:00 HOOKUP DATE: 05/21/17 02:15:00 PM Wed ANALYSIS START TIME: 05/21/2017 2:20:00 PM ANALYSIS END TIME: 05/22/2017 12:56:56 PM PATIENT AGE: 76 PATIENT HEIGHT PATIENT WEIGHT DRUG LIST PATIENT DIAGNOSIS: bradycardia TEST NARRATIVE: The patient's average heart rate was 39 BPM. No episodes of tachycardia wer e noted. Heart rates less than 50 BPM were noted 95% of the time. 1003 pauses exceeding 2.0 sec onds were noted. The longest pause of 2.7 seconds occurred at 04:55:45 AM Lauren. 777 ventricular ec topics, which represented 1% of the total beat count, were noted. The highest ventricular ectopic fr equency occurred from 10:00 AM to 11:00 AM Lauren. During this time 113 VE(s) occurred. Ventricular ec topics were observed as 749 isolated beat(s), as 9 couplet(s) and as 1 run(s). Some of the ventricul ar beats occurred in bigeminal cycles. 144 supraventricular ectopics, which represented < 1% of t he total beat count, were noted. The highest supraventricular ectopic frequency occurred from 07:00 AM to 08:00 AM Lauren. During this time 17 SVE(s) occurred. No episodes of ST depression (defined a s -1.0 mm or more) were noted in channel 1. No episodes of ST depression (defined as -1.0 mm or more ) were noted in channel 2. No episodes of ST depression (defined as -1.0 mm or more) were noted in c bhaktinel 3. NO SYMPTOMS REPORTED TEST INTERPRETATION: Sinus rhythm WITH SINUS BRADYCARDIA OCCASIONAL INTERMEDIATE LENGTH SINUS PAUSES (LONGEST 2.7 SEC) OCCASIONAL SHOR T ATRIAL RUNS AND PACs RARE TO OCCASIONAL PVCs IN SINGLETS AND COUPLETS Signed by : Xavi Lofton
--- NOTE | 2017-05-22 14:31 | PD.ONC.PN ---
Subjective Subjective Remarks No neck pain. No CP/SOB. Objective Data Date Time Temp Pulse Resp B/P (MAP) Pulse Ox O2 Delivery O2 Flow Rate FiO2 05/22/17 07:12 98 21 05/22/17 06:00 40 05/22/17 04:00 31 05/22/17 04:00 98.6 31 21 163/76 (105) 96 05/22/17 02:00 32 05/22/17 00:00 39 17 152/72 (98) 97 05/22/17 00:00 39 05/21/17 22:00 38 05/21/17 20:00 96.7 43 22 180/95 (123) 96 05/21/17 20:00 48 05/21/17 18:00 37 05/21/17 16:54 96 21 05/21/17 16:00 41 05/21/17 16:00 97.8 41 70 163/79 (107) 96 05/22/17 05/22/17 05/22/17 07:00 15:00 23:00 Intake Total 1337 ml Output Total 2450 ml Balance -1113 ml Result Diagram: 05/19/17 0450 05/20/17 0452 Administered Medications Medications (Trade) Dose Ordered Sig/Shilpa Route PRN Reason Start Time Stop Time Status Last Admin Dose Admin Sodium Chloride 1,000 ml @ 50 mls/hr Q20H IV 05/17/17 15:00 05/22/17 04:34 Sodium Chloride (NS Flush) 2 ml BID IV FLUSH 05/17/17 21:00 05/22/17 11:22 Pantoprazole Sodium (Protonix Inj) 40 mg DAILY IV PUSH 05/18/17 09:00 05/22/17 09:00 Miscellaneous Information 1 Q361D XX 05/17/17 14:30 05/17/17 14:30 Chlorhexidine Gluconate (Chlorhexidine 2% Cloth) 3 pack Taper DAILY@04 TOP 05/18/17 04:00 05/14/18 03:59 05/22/17 04:00 Senna/Docusate Sodium (Cortney-Colace) 1 tab BID PO 05/17/17 21:00 05/21/17 20:49 Levothyroxine Sodium (Synthroid Inj) 44 mcg DAILY@06 IV PUSH 05/18/17 06:00 05/22/17 06:59 Timolol Maleate (Timoptic 0.5% Opth Soln) 1 drop DAILY EACH EYE 05/19/17 15:00 05/22/17 09:00 Enalaprilat (Vasotec Inj) 1.25 mg Q6H PRN IV sbp above 160 05/20/17 17:30 05/22/17 07:00 Clonidine (Catapres) 0.2 mg Q6H PRN PO SBP above 160 05/20/17 17:30 05/22/17 03:43 Losartan Potassium (Cozaar) 50 mg Q12HR PO 05/21/17 09:00 05/22/17 11:21 Amoxicillin/ Clavulanate Potassium (Augmentin) 875 mg Q12HR PO 05/21/17 10:00 05/22/17 11:21 Prednisone (Deltasone) 20 mg BID PO 05/21/17 09:15 05/22/17 11:21 Objective Remarks GENERAL: Well-nourished, well-developed patient. SKIN: Warm and dry. HEAD: Normocephalic. EYES: No scleral icterus. No injection or drainage. NECK: Supple, trachea midline. No JVD or lymphadenopathy. Nodularity right submandibular area, non tender LYMPHATIC: No adenopathy. CARDIOVASCULAR: Regular rate and rhythm without murmurs. RESPIRATORY: Breath sounds equal bilaterally. No accessory muscle use. GASTROINTESTINAL: Abdomen soft, non-tender, nondistended. EXTREMITIES: No cyanosis, or edema. MUSCULOSKELETAL: Adequate muscle tone. NEUROLOGICAL: No obvious focal deficit. Awake, alert, and oriented x3. PSYCHIATRIC: Appropriate mood and affect; insight and judgment normal. Assessment/Plan Assessment 1. Berhane's angina. He presented with acute neck swelling and dysphagia. CT of the neck showed abnormal asymmetric soft tissue involving the left mucosal surface of the oropharynx and hypopharynx extending inferiorly to the piriform sinus. There was thickening and edema of the epiglottis. He was seen by Dr. Olson. ENT exam showed some inflammatory changes and edema but no mass noted. He was treated with antibiotics and steroids, and his symptoms have significantly improved. I doubt that he has recurrent head and neck cancer. 05/21/17 Symptoms have resolved. Left submandibular fullness almost completely resolved. 05/22/17 No symptoms. No palpable mass in right neck. 2. 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 He was treated with radiation with cisplatin, completed in October 2009. It has been more than 7 years since his treatment. There is no clear evidence of recurrent disease. Plan Plan:: 1. Continue antibiotics and steroids taper per ENT. 2. Patient can follow up with oncology after discharge and can consider getting a PET scan at that time. Jose Day MD May 22, 2017 14:31
--- NOTE | 2017-05-22 16:36 | ECHRPT ---
Indication: Cardimyopathy CONCLUSIONS The left ventricular systolic function is normal with an estimated ejection fraction in the range of 55-60%. Normal left ventricular size. Wall thickness is normal. No regional wall motion abnormalities are present. Trace mitral valve regurgitation. Aortic valve sclerosis is present. There is mild tricuspid valve regurgitation. The estimated pulmonary arterial pressure is 32.7 mmHg. BP: 180 / 95 HR: 48 Rhythm: Sinus MEASUREMENTS (Male / Female) Normal Values Technical Quality:Fair 2D ECHO LV Diastolic Diameter PLAX 5.4 cm 4.2 - 5.9 / 3.9 - 5.3 cm LV Systolic Diameter PLAX 3.7 cm IVS Diastolic Thickness 1.0 cm 0.6 - 1.0 / 0.6 - 0.9 cm LVPW Diastolic Thickness 1.0 cm 0.6 - 1.0 / 0.6 - 0.9 cm LV Relative Wall Thickness 0.4 RV Internal Dim ED PLAX 3.2 cm LVOT Diameter 2.0 cm LA Systolic Diameter LX 3.9 cm 3.0 - 4.0 / 2.7 - 3.8 cm LV Ejection Fraction MOD 4C 57.7 % LV Cardiac Index MOD 4C 1992.1 cm/minm LV Ejection Fraction 4C AL 61.5 % LV Cardiac Index 4C AL 2201.7 cm/minm M-MODE Aortic Root Diameter MM 2.9 cm LA Systolic Diameter MM 1.8 cm LA Ao Ratio MM 0.6 AV Cusp Separation MM 4.0 cm DOPPLER AV Peak Velocity 136.0 cm/s AV Peak Gradient 7.4 mmHg LVOT Peak Velocity 111.0 cm/s LVOT Peak Gradient 4.9 mmHg AV Area Cont Eq pk 2.6 cm MV Area PHT 3.1 cm Mitral E Point Velocity 63.7 cm/s Mitral A Point Velocity 42.4 cm/s Mitral E to A Ratio 1.5 LV E' Lateral Velocity 7.6 cm/s Mitral E to LV E' Lateral Ratio 8.4 LV E' Septal Velocity 4.1 cm/s Mitral E to LV E' Septal Ratio 15.6 TR Peak Velocity 238.0 cm/s TR Peak Gradient 22.7 mmHg Right Atrial Pressure 10.0 mmHg Pulmonary Artery Systolic Pressu 32.7 mmHg Right Ventricular Systolic Press 32.7 mmHg FINDINGS LEFT VENTRICLE The left ventricular systolic function is normal with an estimated ejection fraction in the range of 55-60%. Normal left ventricular size. Wall thickness is normal. No regional wall motion abnormalities are present. MITRAL VALVE Trace mitral valve regurgitation. AORTIC VALVE Aortic valve sclerosis is present. TRICUSPID VALVE There is mild tricuspid valve regurgitation. The estimated pulmonary arterial pressure is 32.7 mmHg. Nura Crystal MD (Electronically Signed) Final Date:22 May 2017 16:35
== END 2017-05-22 15:30 | disposition home or self-care (01) | DRG 153 ==
LOC: NEPE 08:36 → NEDA 12:59 → HIME 16:30
PROVIDERS: ADMIT Hospitalist; ATTEND Hospitalist
DX: J05.10 Acute epiglottitis without obstruction (principal); D69.6 Thrombocytopenia, unspecified; R00.1 Bradycardia, unspecified; H40.9 Unspecified glaucoma; R13.10 Dysphagia, unspecified; F41.9 Anxiety disorder, unspecified; K22.70 Barrett's esophagus without dysplasia; I10 Essential (primary) hypertension; Z85.818 Personal history of malignant neoplasm of other sites of lip, oral cavity, and pharynx; Z86.711 Personal history of pulmonary embolism
CPT/HCPCS: 70491; 76937; 80048; 80053; 80202; 82565; 83735; 84100; 84145; 84439; 84443; 85007; 85025; 85027; 85610; 85730; 87081; 87641; 87880; 93005; 93225; 93226; 93306; 94640; 94664; 96361; 96374; C9113; J0360; J0696; J1100; J2543; J3370; J7030; J7040; J7050; J7512; Q9967

== ENCOUNTER → 2017-11-12 | Outpatient (CLI) | payer MEDICARE ==
[~2017-11-12] MED LIST changes: -ALLO300 PO; +ALLO300T2 PO; +AMOX875T2 PO; +COZA50TA PO; +OMEP40CA2 PO; +PRED10 PO; -PRIL20CA PO; +TIMO0.255 EACH EYE; -TIMO0.255 OU; -VALT500T PO
== END ==
LOC: CLAB 12:09
PROVIDERS: ATTEND Specialist
DX: B18.2 Chronic viral hepatitis C (principal); E03.9 Hypothyroidism, unspecified; K21.9 Gastro-esophageal reflux disease without esophagitis; M10.00 Idiopathic gout, unspecified site; E55.9 Vitamin D deficiency, unspecified
CPT/HCPCS: 36415; 82140